=== PATIENT | female | born 1985 | race Caucasian/White ===

== ENCOUNTER 2023-04-14 19:59 | Outpatient (REF) | payer BC, SELFPAY ==
[2023-04-19 11:14] LABS: Age Gdln ACOG Testing Note (.); HPV Aptima Negative (Negative); IGP, Aptima HPV, rfx 16/18,45 Note (.)
== END 2023-04-14 20:00 | disposition home or self-care (01) ==
LOC: LAB 19:59
PROVIDERS: Visit Provider Obstetrics & Gynecology
DX: Z01.419 Encounter for gynecological examination (general) (routine) without abnormal findings (principal)
CPT/HCPCS: 87624; G0145

== ENCOUNTER 2024-05-01 09:35 | Outpatient (OUT) | payer BC, SELFPAY ==
--- NOTE | 2024-05-01 09:37 | US_ITS ---
The [address] [address] Patient Name: ANURAG OSORIO MRN: [id number] date: 1985 Sex: F Assigned Patient Location: Current Patient Location: Accession/Order Number: [id number] Exam Date: 05/01/2024 09:40 Report Date: 05/02/2024 07:15 At the request of: AKIL TYLER Procedure: US pelvis w/ transvaginal EXAMINATION: US pelvis w/ transvaginal HISTORY: Menorrhagia with regular cycle N92.0 COMPARISON: No relevant comparison available. FINDINGS: The uterus is normal in size, contour and echotexture measuring 8.4 x 4.8 x 3.9 cm. The uterus is anteverted. Endometrium measures 6.1 mm, normal. The right ovary is normal measuring 2.6 x 1.5 x 1.6 cm. Normal color and Doppler flow. Area of anechoic echogenicity measuring 1 cm, follicle versus cyst The left ovary is normal measuring 1.3 x 1.4 cm. Normal color and Doppler flow No free fluid US/US pelvis w/ transvaginal IMPRESSION: No acute abnormality Electronically authenticated by: TRINY COLLINS Date: 05/02/2024 07:15
--- OUTSIDE RECORDS SUMMARY | 2024-05-01 09:51 | XMS_ITS | CCD ---
Author Organization [facility] Care Team Providers Care Academic Affairs Coordinator Name Role Phone ROULA, DR TROY Sheets Attending Unavailable ROULA, DR TROY Sheets Admitting Unavailable TESMOND, AHMET Primary Care Unavailable LIANA, DR MARCUS Jones Consulting Unavailable GRILLIS, DR HARRIS Consulting Unavailable ROULA, DR TROY Sheets Consulting Unavailable AGUBOSIMNANCY Consulting Unavailable KONSTBETZAIDA GREENBERG Consulting Unavailable HartmannLuz Marina issa Consulting Unavailable Betzaida Zaldivar Attending Unavailable Tania De Anda Unavailable Unavailable Primary Care Provider KATELYN Coyne Attending Unavailable KATELYN TYLER Attending Unavailable KATELYN TYLER Attending Unavailable KATELYN TYLER Attending Unavailable KATELYN TYLER Attending Unavailable Allergies Allergy Classification Reported Allergen(s) Allergy Type Date of Onset Reaction(s) Facility (1 source) No Known Medication Allergies; Translations: [No Known Medication Allergies] Propensity to adverse reactions (disorder) [facility] Repository Medications Current Medications Medication Drug Class(es) Dates Sig (Normalized) Sig (Original) cephalexin 500 mg oral capsule (1 source) Cephalosporin Antibacterial Start: 02-25-2023 take 1 capsule by mouth every eight hours Cephalexin 500 MG 1 capsule Orally every 8 hrs for 7 Feb, Active phentermine hydrochloride 37.5 mg oral tablet (9 sources) Sympathomimetic Amine Anorectic Start: 02-14-2024 End: 04-19-2024 take 1 tablet by mouth before mealtime phentermine (Adipex-P) 37.5 MG tablet Indications: Encounter for weight management Take 1 tablet (37.5 mg) by mouth in the morning. Take before meals. 30 tablet 03/15/2024 04/19/2024 Discontinued Completed/Discontinued Medications Medication Drug Class(es) Dates Sig (Normalized) Sig (Original) methylPREDNISolone 4 mg oral tablet (1 source) Corticosteroid Start: 06-29-2022 Medrol 4 MG as directed Orally as directed for 6 days Jun, Not-Taking Problems Active Problems Problem Classification Problem Date Documented Date Episodic/Chronic Abdominal pain (3 sources) Right upper quadrant pain; Translations: [RIGHT UPPER QUADRANT PAIN] Onset: 10-12-2020 Episodic Administrative/social admission (3 sources) Patient encounter status; Translations: [Persons encountering health services in other specified circumstances] 03-15-2024 Episodic Biliary tract disease (1 source) Calculus of gallbladder with acute cholecystitis without obstruction; Translations: [CALCU GB W/AC CHOLECYST W/O OBST] Onset: 10-17-2020 Episodic Malaise and fatigue (5 sources) Fatigue; Translations: [Chronic fatigue, unspecified] Onset: 01-12-2023 01-12-2023 Chronic Skin and subcutaneous tissue infections (1 source) Cellulitis of left finger Episodic Unclassified (1 source) CONTACT W/AND (SUSP) EXPOS COVID-19; Translations: [CONTACT W/AND (SUSP) EXPOS COVID-19] Onset: 10-17-2020 Past or Other Problems Problem Classification Problem Date Documented Da te Episodic/Chronic Blindness and vision defects (5 sources) Bilateral myopia of eyes; Translations: [Myopia, bilateral] Onset: 01-12-2023 01-12-2023 Episodic Mycoses (5 sources) Mycosis; Translations: [Candidiasis, unspecified] Onset: 01-12-2023 01-12-2023 Episodic Other nutritional; endocrine; and metabolic disorders (5 sources) Abnormal weight gain; Translations: [Abnormal weight gain] Onset: 01-12-2023 01-12-2023 Episodic Results Test Name Value Interpretation Reference Range Facility Quantiferon-TB Plus (Client Incubated)on 04-25-2022 Gamma interferon background IA Qn (Bld) 0.01 International_Unit/mL Invalid Interpretation Code [facility] Comment on above: Performed By: #### 3 [id number] #### [facility] [address] [place] [address] M. tuberculosis stim IFN-g by CD4+ CD8+ T-cells corrected for background Qn (Bld) 0.01 International_Unit/mL Invalid Interpretation Code [facility] Comment on above: Performed By: #### 3 [id number] #### [facility] [address] [place] [address] M. tuberculosis stim IFN-g by CD4+ T-cells corrected for background Qn (Bld) 0.00 International_Unit/mL Invalid Interpretation Code [facility] Comment on above: Performed By: #### 3 [id number], [id number] #### [facility] [address] [place] [address] M. tuberculosis stim IFN-g Ql (Bld) [Interp] Negative Invalid Interpretation Code Negative [facility] Comment on above: Result Comment: No r esponse to M tuberculosis antigens detected. Infection with M tuberculosis is unlikely, but high risk individuals should be considered for additional testing (ATS/IDSA/CDC Clinical Practice Guidelines, 2017). The reference range is an Antigen minus Nil result of <0.35 IU/mL. The specimen received for QuantiFERON testing was incubated by the ordering institution. Specific procedures outlined in our Directory of Services and in the package insert for the QuantiFERON Gold (In Tube) test must be followed to enable for proper stimulation of cells for the production of interferon gamma. Chemiluminescence immunoassay methodology Performed at: [facility] [id number] PhD Sarika Olivia Performed By: #### 3 [id number] #### [facility] [address] [place] [address] Mitogen stimulated gamma interferon Qn (Bld) >10.00 Invalid Interpretation Code [facility] Comment on above: Performed By: #### 3 [id number], [id number], [id number] #### [facility] [address] [place] [address] Service comment (Unsp spec) [Interp] Comment Invalid Interpretation Code [facility] Comment on above: Result Comment: Jt tiFERON-TB Gold Plus is a qualitative indirect test for M tuberculosis infection (including disease) and is intended for use in conjunction with risk assessment, radiography, and other medical and diagnostic evaluations. The QuantiFERON-TB Gold Plus result is determined by subtracting the Nil value from either TB antigen (Ag) value. The Mitogen tube serves as a control for the test. Performed By: #### 3 [id number], [id number] #### [facility] [address] [place] [address] Hep Bs Abon 04-24-2022 HBV surface Ab Ql (S) Non-Reactive Invalid Interpretation Code [facility] Comment on above: Result Comment: Non Reactive: Inconsistent with immunity, less than 10 mIU/mL Reactive: Consistent with immunity, greater than 9.9 mIU/mL Performed at: [address] [id number] PhD Sarika Olivia Performed By: #### 3 [id number], [id number] #### [facility] [address] [place] [address] Measles/Mumps/Rubella Immuni tyon 04-24-2022 MeV IgG IA Qn (S) 283.0 A unit/mL Invalid Interpretation Code Immune >16.4 [facility] Comment on above: Result Comment: Nega tive <13.5 Equivocal 13.5 - 16.4 Positive >16.4 Presence of antibodies to Rubeola is presumptive evidence of immunity except when acute infection is suspected. Performed By: #### 3 [id number], [id number], [id number] #### [facility] [address] [place] [address] MuV IgG IA Qn (S) <9.0 Low Immune >10.9 [facility] Comment on above: Result Comment: Nega tive <9.0 Equivocal 9.0 - 10.9 Positive >10.9 A positive result generally indicates past exposure to Mumps virus or previous vaccination. Performed at: [address] [id number] PhD Sarika Olivia Performed By: #### 3 [id number], [id number], [id number], [id number] #### [facility] [address] [place] [address] Rubella virus IgG Qn (S) 2.03 [IU]/mL Invalid Interpretation Code Immune >0.99 [facility] Comment on above: Result Comment: Non- immune <0.90 Equivocal 0.90 - 0.99 Immune >0.99 Performed By: #### 3 [id number], [id number], [id number], [id number] #### [facility] [address] [place] [address] Varic IgGon 04-24-2022 VZV IgG IA Qn (S) 638 Invalid Interpretation Code Immune >165 [facility] Comment on above: Result Comment: Nega tive <135 Equivocal 135 - 165 Positive >165 A positive result generally indicates exposure to the pathogen or administration of specific immunoglobulins, but it is not indication of active infection or stage of disease. Performed at: [facility] [address] [id number] PhD Sarika Olivia Performed By: #### 3 [id number], [id number] #### [facility] [address] [place] [address] Physician Orderon 04-23-2022 Physician Order [id number] Normal [facility] CBC AUTO DIFFon 10-12-2020 BASO # 0.0 103/ul Normal 0.0-0.1 [facility] Comment on above: Performed By: #### C BC #### [facility] [address] [place] [address] Gris Ceja Basophils/100 WBC (Bld) 0.1 % Critically low 0.2-2.0 [facility] Comment on above: Performed By: #### C BC #### [facility] [address] [place], [place] [id number] Gris Brenna EO # 0.0 103/ul Normal 0.0-0.7 [facility] Comment on above: Performed By: #### C BC #### [facility] [address] [place] [address] Gris Brenna Eosinophils/100 WBC (Bld) 0.3 % Critically low 0.9-7.0 [facility] Comment on above: Performed By: #### C BC #### [facility] [address] [place] [address] Gris Brenna Erythrocyte distribution width (RBC) [Ratio] 12.3 % Normal 11.0-15.0 [facility] Comment on above: Performed By: #### C BC #### [facility] [address] [place] [address] Gris Brenna Hematocrit (Bld) [Volume fraction] 36.0 % Normal 36.0-48.0 [facility] Comment on above: Performed By: #### C BC #### [facility] [address] [place] [address] Gris Brenna Hemoglobin (Bld) [Mass/Vol] 12.0 g/dL Normal 12.0-16.0 [facility] Comment on above: Performed By: #### C BC #### [facility] [address] [place] [address] Gris Brenna IG # 0.02 10e3/ul Normal 0.00-0.03 [facility] Comment on above: Performed By: #### C BC #### [facility] [address] [place] [address] Gris Brenna IG % 0.2 % Normal 0.0-0.5 [facility] Comment on above: Performed By: #### C BC #### [facility] [address] [place], [place] [phone] Gris Brenna LYMPH # 1.5 103/ul Normal 1.2-3.8 [facility] Comment on above: Performed By: #### C BC #### [facility] [address] [place] [address] Gris Brenna Lymphocytes/100 WBC (Bld) 13.5 % Critically low 20.5-60.0 [facility] Comment on above: Performed By: #### C BC #### [facility] [address] [place], [place] [phone] Gris Brenna MANUAL DIFF REQ NO Normal [facility] Comment on above: Performed By: #### C BC #### [facility] [address] [id number] Gristej Ceja MCH (RBC) [Entitic mass] 29.3 pg Normal 26.7-34.0 [facility] Comment on above: Performed By: #### C BC #### [facility] [address] [place] [address] Gristej Ceja MCHC (RBC) [Mass/Vol] 33.3 g/dL Normal 29.9-35.2 [facility] Comment on above: Performed By: #### C BC #### [facility] [address] [place], [place] [address] Gristej Lauen MCV (RBC) [Entitic vol] 87.8 fL Normal 81.0-99.0 [facility] Comment on above: Performed By: #### C BC #### [facility] [address] [place], [place] [phone] Gris Brenna MONO # 0.6 103/ul Normal 0.3-0.8 [facility] Comment on above: Performed By: #### C BC #### [facility] [address] [place], [place] [phone] Gris Brenna Monocytes/100 WBC (Bld) 5.2 % Normal 1.7-12.0 [facility] Comment on above: Performed By: #### C BC #### [facility] [address] [place], [place] [address] Gris Brenna NEUT # 9.1 103/ul Critically high 1.4-6.5 [facility] Comment on above: Performed By: #### C BC #### [facility] [address] [place], [place] [phone] Gris Brenna Neutrophils/100 WBC (Bld) 80.7 % Critically high 43.0-75.0 [facility] Comment on above: Performed By: #### C BC #### [facility] [address] [place], [place] [address] Gris Ceja Platelet mean volume (Bld) [Entitic vol] 9.7 fL Normal 9.5-13.5 [facility] Comment on above: Performed By: #### C BC #### [facility] [address] [place], [place] [address] Gris Ceja PLT 228 103/ul Normal 150-450 [facility] Comment on above: Performed By: #### C BC #### [facility] [address] [place], [place] [address] Gris Ceja RBC 4.10 106/ul Critically low 4.20-5.40 [facility] Comment on above: Performed By: #### C BC #### [facility] [address] [place] [address] Gris Ceja WBC 11.2 103/ul Critically high 4.0-11.0 [facility] Comment on above: Performed By: #### C BC #### [facility] [address] [place] [address] ABD/PELVIS WO CONon 10-12 CT ABD/PELVIS WO CON EXAMINATION: CT ABD/PELVIS WO CON HISTORY: CALCULUS OF KIDNEY. Upper abdominal pain. COMPARISON: None. TECHNIQUE: Unenhanced helical imaging of the abdomen and pelvis is performed. Multiplanar reconstructions are submitted. Dose reduction techniques were achieved by using: automated exposure control and/or adjustment of mA and /or kV according to patient size and/or use of iterative reconstruction technique. FINDINGS: ABDOMEN: The imaged lung bases are clear. The liver, spleen, adrenals, kidneys, pancreas, and biliary ducts are normal. Multiple gallstones are present within the gallbladder. No findings of cholecystitis. No biliary duct dilatation or biliary stones. No renal or ureteric stones are present. There is no hydronephrosis. There is no free fluid, fluid collection, or adenopathy. The stomach, proximal small bowel, and imaged colon are normal in course and caliber. No bowel wall thickening is seen. The aorta and IVC are within normal limits. No acute osseous lesion is seen. PELVIS: The distal ureters, urinary bladder, rectosigmoid colon, distal small bowel loops, and appendix are normal. There is no pelvic free fluid, fluid collection, or adenopathy. The uterus and adnexa appear normal. There are no distal urinary tract calculi. No acute osseous abnormality is present. IMPRESSION: 1. No acute abdominal or pelvic inflammatory process. 2. No urinary tract calculi. 3. Normal appendix and no adenopathy. 4. Cholelithiasis. No findings of cholecystitis. No biliary duct dilatation or biliary stones. Electronically authenticated by: LUZ MARINA HARTMANN Date: 2020-10-11 23:05 Normal [facility] Covid-19 PCR (CVDTBH)on 09-15 SARS-CoV-2 (COVID-19) RNA JAREK+probe Ql (Unsp spec) Not detected Normal NOT DETECTED [facility] Comment on above: Result Comment: This test is not yet approved or cleared by the [place] FDA. When there are no FDA-approved or cleared tests available, and other criteria are met, FDA can make tests available under an emergency access mechanism called an Emergency Use Authorization (EUA). The EUA for this test is supported by the Supervisor Sample Preparation of Health and Human Service's (HHS's) declaration that circumstances exist to justify the emergency use of in vitro diagnostics for the detection and/or diagnosis of the virus that causes COVID-19. This EUA will remain in effect (meaning this test can be used) for the duration of the COVID-19 declaration justifying emergency of IVDs, unless it is terminated or revoked by FDA (after which the test may no longer be used). When diagnostic testing is negative, the possibility of a false negative should be considered in the context of a patient's recent exposures and the presence of clinical signs and symptoms consistent with SARS-CoV-2. Performed By: #### C VDTBH #### [facility] [address] [place], [place] [address] Gris Ceja PREG HCG QUALon 10-12-2020 , QUAL Negative Normal NEGATIVE [facility] Comment on above: Performed By: #### P REG ####[facility] [address] [place], [place] [address]DfakrlGris Ceja PROF 14(COMP METB)on 05-29-2 021 Albumin [Mass/Vol] 3.4 g/dL Critically low 3.5-5.0 Th [facility] Comment on above: Performed By: #### C MP #### [facility] [address] [place], [place] [phone] Gris Brenna Albumin/Globulin [Mass ratio] 1.0 {ratio} Normal [facility] Comment on above: Performed By: #### C MP #### [facility] [address] [place], [place] [address] Gris Brenna ALP [Catalytic activity/Vol] 69 U/L Normal 38-126 [facility] Comment on above: Performed By: #### C MP #### [facility] [address] [place], [place] [address] Gris Brenna ALT [Catalytic activity/Vol] 15 U/L Normal 9-52 [facility] Comment on above: Performed By: #### C MP #### [facility] [address] [place], [place] [address] Gris Brenna Anion gap [Moles/Vol] 11.2 mmol/L Normal [facility] Comment on above: Performed By: #### C MP #### [facility] [address] [place], [place] [address] Gris Brenna AST [Catalytic activity/Vol] 15 U/L Normal 14-36 [facility] Comment on above: Performed By: #### C MP #### [facility] [address] [place], [place] [address] Gris Brenna Bilirubin [Mass/Vol] 0.4 mg/dL Normal 0.2-1.3 [facility] Comment on above: Performed By: #### C MP #### [facility] [address] [place], [place] [address] Gris Brenna Calcium [Mass/Vol] 8.2 mg/dL Critically low 8.4-10.2 Th [facility] Comment on above: Performed By: #### C MP #### [facility] [address] [place], [place] [address] Gris Brenna Chloride [Moles/Vol] 108 mmol/L Critically high 98-107 [facility] Comment on above: Performed By: #### C MP #### [facility] [address] [address] Gris Brenna CO2 [Moles/Vol] 25.5 mmol/L Normal 22.0-30.[address] [facility] Comment on above: Performed By: #### C MP #### [facility] [address] [address] Gris Brenna Creatinine [Mass/Vol] 0.72 mg/dL Normal 0.52-1.04 [facility] Comment on above: Performed By: #### C MP #### [facility] [address] [id number] Gris Brenna EGFR-AF GUYANESE >60 Normal >=60 [facility] Comment on above: Performed By: #### C MP #### [facility] [address] [address] Gris Brenna EGFR-NON AF GUYANESE >60 Normal >=60 [facility] Comment on above: Performed By: #### C MP #### [facility] [address] [address] Gris Brenna Globulin (S) [Mass/Vol] 3.4 g/dL Normal [facility] Comment on above: Performed By: #### C MP #### [facility] [address] [place] [address] Gris Brenna Glucose [Mass/Vol] 123 mg/dL Critically high 74-106 T [facility] Comment on above: Performed By: #### C MP #### [facility] [address] [address] Gris Brenna Potassium [Moles/Vol] 4.7 mmol/L Normal 3.4-5.0 [facility] Comment on above: Performed By: #### C MP #### [facility] [address] [place] [address] Gris Brenna Protein [Mass/Vol] 6.8 g/dL Normal 6.1-8.2 [facility] Comment on above: Performed By: #### C MP #### [facility] [address] [place] [address] Gris Brenna Sodium [Moles/Vol] 140 mmol/L Normal 137-145 [facility] Comment on above: Performed By: #### C MP #### [facility] [address] [place] [address] Gris Ceja Urea nitrogen [Mass/Vol] 7.0 mg/dL Normal 7.0-17.0 [facility] Comment on above: Performed By: #### C MP #### [facility] [address] [place] [address] Gris Ceja Urea nitrogen/Creatinin e [Mass ratio] 9.7 mg/mg Normal [facility] Comment on above: Performed By: #### C MP #### [facility] [address] [place] [address] Gris Ceja RAPID COVID-19 ANTIGENon EUA Statement SEE BELOW Normal [facility] Comment on above: Result Comment: This test has not been FDA cleared or approved, but has been authorized by the FDA under an Emergency Use Authorization (EUA) for use by authorized laboratories certified under CLIA that meet the requirements to perform moderate or high complexity testing. This test has been authorized only for the detection of proteins from SARS-CoV-2, not for any other viruses or pathogens. The emergency use of this test is authorized for the duration of the declaration that circumstances exist justifying the authorization of emergency use of in vitro diagnostic tests for detection and/or diagnosis of Covid-19 under section 564(b)(1) of the Act, 21 U.S.C. 360bbb-3(b)(1), unless the declaration is terminated or authorization is revoked sooner. Performed By: #### C VDAG #### [facility] [address] [place] [address] Gris Ceja SARS-CoV-2 (COVID-19) RNA JAREK+probe Ql (Unsp spec) Negative Normal NEGATIVE [facility] Comment on above: Result Comment: Nega tive results are presumptive. They do not preclude infection and should not be used as the sole basis for treatment decisions. Additional confirmatory testing by a molecular method should be considered. Performed By: #### C VDAG #### [facility] [address] [place], [place] [address] Gris Brenna AMYLASEon 10-11-2020 Amylase [Catalytic activity/Vol] 41 U/L Normal 31-110 [facility] Comment on above: Performed By: #### C MP, RUTHY, KATELYN #### [facility] [address] [place], [place] [address] Gris Brenna CBC AUTO DIFFon 10-11-2020 BASO # 0.0 103/ul Normal 0.0-0.1 [facility] Comment on above: Performed By: #### C BC #### [facility] [address] [place], [place] [phone] Gris Brenna Basophils/100 WBC (Bld) 0.1 % Critically low 0.2-2.0 [facility] Comment on above: Performed By: #### C BC #### [facility] [address] [place] [address] Gris Brenna EO # 0.1 103/ul Normal 0.0-0.7 [facility] Comment on above: Performed By: #### C BC #### [facility] [facility] [address] [place], [place] [id number] Gris Brenna Eosinophils/100 WBC (Bld) 1.3 % Normal 0.9-7.0 [facility] Comment on above: Performed By: #### C BC #### [facility] [address] [place] [address] Gris Brenna Erythrocyte distribution width (RBC) [Ratio] 12.3 % Normal 11.0-15.0 [facility] Comment on above: Performed By: #### C BC #### [facility] [address] [place], [place] [phone] Gris Brenna Hematocrit (Bld) [Volume fraction] 36.9 % Normal 36.0-48.0 [facility] Comment on above: Performed By: #### C BC #### [facility] [address] [place], [place] [phone] Gris Brenna Hemoglobin (Bld) [Mass/Vol] 12.6 g/dL Normal 12.0-16.0 [facility] Comment on above: Performed By: #### C BC #### [facility] [address] [place] [address] Gris Brenna IG # 0.01 10e3/ul Normal 0.00-0.03 [facility] Comment on above: Performed By: #### C BC #### [facility] [address] [place] [address] Gris Brenna IG % 0.1 % Normal 0.0-0.5 [facility] Comment on above: Performed By: #### C BC #### [facility] [address] [place] [address] Gris Brenna LYMPH # 2.4 103/ul Normal 1.2-3.8 [facility] Comment on above: Performed By: #### C BC #### [facility] [address] [place] [address] Gris Brenna Lymphocytes/100 WBC (Bld) 34.9 % Normal 20.5-60.0 [facility] Comment on above: Performed By: #### C BC #### [facility] [address] [place] [address] Gris Brnena MANUAL DIFF REQ NO Normal [facility] Comment on above: Performed By: #### C BC #### [facility] [address] [place] [address] Gris Brenna MCH (RBC) [Entitic mass] 29.3 pg Normal 26.7-34.0 [facility] Comment on above: Performed By: #### C BC #### [facility] [address] [place] [address] Gris Brenna MCHC (RBC) [Mass/Vol] 34.1 g/dL Normal 29.9-35.2 [facility] Comment on above: Performed By: #### C BC #### [facility] [address] [place] [address] Gris Brenna MCV (RBC) [Entitic vol] 85.8 fL Normal 81.0-99.0 [facility] Comment on above: Performed By: #### C BC #### [facility] [address] [place] [address] Gris Ceja MONO # 0.4 103/ul Normal 0.3-0.8 [facility] Comment on above: Performed By: #### C BC #### [facility] [address] [place], [place] [id number] Gris Ceja Monocytes/100 WBC (Bld) 6.4 % Normal 1.7-12.0 [facility] Comment on above: Performed By: #### C BC #### [facility] [address] [place] [address] Gris Lauen NEUT # 3.9 103/ul Normal 1.4-6.5 [facility] Comment on above: Performed By: #### C BC #### [facility] [address] [place] [address] Gris Ceja Neutrophils/100 WBC (Bld) 57.2 % Normal 43.0-75.0 [facility] Comment on above: Performed By: #### C BC #### [facility] [address] [place] [address] Gris Ceja Platelet mean volume (Bld) [Entitic vol] 9.3 fL Critically low 9.5-13.5 [facility] Comment on above: Performed By: #### C BC #### [facility] [address] [place] [address] Gris Ceja PLT 227 103/ul Normal 150-450 [facility] Comment on above: Performed By: #### C BC #### [facility] [address] [place] [address] Gristej Lauen RBC 4.30 106/ul Normal 4.20-5.40 [facility] Comment on above: Performed By: #### C BC #### [facility] [address] [place], [place] [phone] Gristej Lauen WBC 6.9 103/ul Normal 4.0-11.0 [facility] Comment on above: Performed By: #### C BC #### [facility] [address] [place] [address] Gris Ceaj LIPASEon 10-11-2020 Lipase [Catalytic activity/Vol] 193.0 U/L Normal 23.0-300.0 [facility] Comment on above: Performed By: #### C RUTHY VENTURA AMY #### [facility] [address] [place] [address] Gris Brenna PROF 14(COMP METB)on 021 Albumin [Mass/Vol] 4.0 g/dL Normal 3.5-5.0 [facility] Comment on above: Performed By: #### C RUTHY VENTURA AMY #### [facility] [address] [place] [address] Gris Brenna Albumin/Globulin [Mass ratio] 1.1 {ratio} Normal [facility] Comment on above: Performed By: #### C RUTHY VENTURA AMY #### [facility] [address] [place] [address] Gris Brenna ALP [Catalytic activity/Vol] 78 U/L Normal 38-126 [facility] Comment on above: Performed By: #### C RUTHY VENTURA AMY #### [facility] [address] [place] [address] Gris Brenna ALT [Catalytic activity/Vol] 10 U/L Normal 9-52 [facility] Comment on above: Performed By: #### C RUTHY VENTURA AMY #### [facility] [address] [place] [address] Gris Brenna Anion gap [Moles/Vol] 15.4 mmol/L Normal [facility] Comment on above: Performed By: #### C RUTHY VENTURA AMY #### [facility] [address] [place] [address] Gris Brenna AST [Catalytic activity/Vol] 10 U/L Critically low 14-36 [facility] Comment on above: Performed By: #### C RUTHY VENTURA AMY #### [facility] [address] [place] [address] Gris Brenna Bilirubin [Mass/Vol] 0.3 mg/dL Normal 0.2-1.3 [facility] Comment on above: Performed By: #### C RUTHY VENTURA AMY #### [facility] [address] [address] Gris Brenna Calcium [Mass/Vol] 8.8 mg/dL Normal 8.4-10.2 [facility] Comment on above: Performed By: #### C RUTHY VENTURA AMY #### [facility] [address] [address] Gris Brenna Chloride [Moles/Vol] 106 mmol/L Normal 98-107 [facility] Comment on above: Performed By: #### C RUTHY VENTURA, KATELYN #### [facility] [address] [address] Gris Brenna CO2 [Moles/Vol] 22.2 mmol/L Normal 22.0-30.0 [facility] Comment on above: Performed By: #### C RUTHY VENTURA KATELYN #### [facility] [address] [place] [address] Gris Brenna Creatinine [Mass/Vol] 0.70 mg/dL Normal 0.52-1.04 [facility] Comment on above: Performed By: #### C RUTHY VENTURA, KATELYN #### [facility] [address] [place] [address] Gris Brenna EGFR-AF GUYANESE >60 Normal >=[address] [facility] Comment on above: Performed By: #### C RUTHY VENTURA, KATELYN #### [facility] [address] [place] [address] Gris Brenna EGFR-NON AF GUYANESE >60 Normal >=60 [facility] Comment on above: Performed By: #### C RUTHY VENTURA, KATELYN #### [facility] [address] [place] [address] Gris Brenna Globulin (S) [Mass/Vol] 3.7 g/dL Normal [facility] Comment on above: Performed By: #### C RUTHY VENTURA, KATELYN #### [facility] [address] [place] [address] Gris Brenna Glucose [Mass/Vol] 139 mg/dL Critically high 74-106 [facility] Comment on above: Performed By: #### C RUTHY VENTURA, KATELYN #### [facility] [address] [id number] Gris Brenna Potassium [Moles/Vol] 3.6 mmol/L Normal 3.4-5.0 [facility] Comment on above: Performed By: #### C RUTHY VENTURA, KATELYN #### [facility] [address] [place], [place] [address] Gris Brenna Protein [Mass/Vol] 7.7 g/dL Normal 6.1-8.2 [facility] Comment on above: Performed By: #### C RUTHY VENTURA, KATELYN #### [facility] [address] [id number] Gris Brenna Sodium [Moles/Vol] 140 mmol/L Normal 137-145 [facility] Comment on above: Performed By: #### C RUTHY VENTURA, KATELYN #### [facility] [address] [place] [address] Gris Brenna Urea nitrogen [Mass/Vol] 10.0 mg/dL Normal 7.0-17.0 [facility] Comment on above: Performed By: #### C RUTHY VENTURA, KATELYN #### [facility] [address] [place], [place] [address] Gris Brenna Urea nitrogen/Creatinin e [Mass ratio] 14.3 mg/mg Normal [facility] Comment on above: Performed By: #### C RUTHY VENTURA, KATELYN #### [facility] [address] [place] [id number] Gris Brenna Vital Signs Date Time Vital Sign Value Performing Clinician Facility 04-19-2024 09:05-0500 Body mass index (BMI) [Ratio] 29.23 kg/m2 Katelyn HOLLIS Work Phone: [facility] 04-19-2024 09:05-0500 Body weight 72.48 kg Katelyn HOLLIS Work Phone: [facility] 04-19-2024 09:05-0500 Diastolic blood pressure 70 mm[Hg] Katelyn HOLLIS Work Phone: [facility] 04-19-2024 09:05-0500 Systolic blood pressure 110 mm[Hg] Katelyn Jayson PA Work Phone: [facility] [employer] 03-15-2024 09:15-0400 Body mass index (BMI) [Ratio] 29.56 kg/m2 Katelyn Tyler PA Work Phone: [facility] 03-15-2024 09:15-0400 Body weight 73.3 kg Katelyn Arlington PA Work Phone: [facility] 03-15-2024 09:15-0400 Diastolic blood pressure 74 mm[Hg] Katelyn Guptaey PA Work Phone: [facility] 03-15-2024 09:15-0400 Systolic blood pressure 116 mm[Hg] Katelyn Tyler PA Work Phone: [facility] 02-25-2023 09:20-0400 Body height 157.48 cm Tania De Anda Other [facility] Other 02-25-2023 09:20-0400 Body mass index (BMI) [Ratio] 27.98 kg/m2 Tania De Anda Other [facility] Other 02-25-2023 09:20-0400 Body temperature 98.1 [degF] Tania De Anda Other [facility] Other 02-25-2023 09:20-0400 Body weight 69.4 kg Tania De Anda Other [facility] Other 02-25-2023 09:20-0400 Diastolic blood pressure 58 mm[Hg] Tania De Anda Other [facility] Other 02-25-2023 09:20-0400 Respiratory rate 18 /min Tania De Anda Other [facility] Other 02-25-2023 09:20-0400 SaO2% (BldA) [Mass fraction] 99 % Tania De Anda Other [facility] Other 02-25-2023 09:20-0400 Systolic blood pressure 104 mm[Hg] Tania Ferreiraler Other [facility] Other Encounters Encounter Date Encounter Type Care Provider Facility Start: 04-19-2024 End: 04-19-2024 Bamboo flowsheet Katelyn Arlington PA Work Phone: [facility] Start: 04-19-2024 End: 04-19-2024 Bamboo flowsheet Katelyn Jayson PA Work Phone: [facility] Start: 04-19-2024 End: 04-19-2024 ambulatory KATELYN JAYSON Not Available Start: 04-19-2024 End: 04-19-2024 Office outpatient visit 10 minutes Katelyn Arlington PA Work Phone: [facility] Comment on above: Encounter for weight management Start: 03-15-2024 End: 03-15-2024 Bamboo flowsheet Katelyn Arlington PA Work Phone: [facility] Start: 03-15-2024 End: 03-15-2024 Bamboo flowsheet Katelyn Arlington PA Work Phone: [facility] Start: 03-15-2024 End: 03-15-2024 ambulatory KATELYN JAYSON Not Available Start: 03-15-2024 End: 03-15-2024 Office outpatient visit 5 minutes Katelyn Arlington PA Work Phone: [facility] Comment on above: Encounter for weight management Start: 02-14-2024 End: 02-14-2024 ambulatory KATELYN JAYSON Not Available Start: 06-22-2023 End: 06-22-2023 ambulatory KATELYN JAYSON Not Available Start: 05-20-2023 End: 05-20-2023 ambulatory KATELYN JAYSON Not Available Start: 02-25-2023 End: 02-25-2023 ambulatory Tania De Anda Other [facility] Other Start: 02-25-2023 Office outpatient vi sit 15 minutes Tania De Anda [facility] Start: 04-23-2022 End: 04-24-2022 ambulatory Betzaida Zaldivar Facility:[facility] Start: 10-12-2020 End: 10-12-[address] TROY CELESTE Facility: Plan of Treatment Date Care Activity Detail Author Start: 05-01-2024 End: 05-01-2024 Professional / ancillary services management 05/01/2024 9:30 AM EST Ancillary Procedure [facility] [address] [place] [id number] [facility] Start: 04-27-2024 End: 04-27-2024 Patient encounter procedure 04/27/2024 9:30 AM EST Procedure Visit [facility] [address] [place] [id number] Shravan Garcia, [address] [place] [address] [facility] Start: 03-20-2024 End: 03-20-2024 Professional / ancillary services management 03/20/2024 9:00 AM EST Ancillary Procedure [facility] [address] [place] [id number] [facility] Payers Date Payer Category Payer Unknown [id number] 2021 [facility] BC[employer] [id number] 2021 [facility] [id number] 1986 Unknown [id number] 1986 Unknown [id number] 1986 Unknown [id number] [id number] 1986 Unknown [id number] 1259 1986 Unknown [id number] 1259 1986 Unknown [id number] 1259 1986 Unknown [id number] [id number] 1959 Unknown [id number] Social History Date Type Detail Facility Start: 03-13-2023 End: 05-20-2023 Sex Assigned At [facility] Start: 10-21-2022 Tobacco smoking stat [facility] Never smoked tobacco [facility] Start: 10-21-2022 Tobacco use and exposure Smoke less tobacco non-user [facility] Start: 02-14-2024 End: 04-19-2024 Alcoholic beverage intake Current drinker of alcohol (finding) [facility] Start: 05-20-2023 End: 02-14-2024 [facility]coholic beverage [facility] How often to you hav e a drink containing alcohol? Monthly or less [facility] How many standard dr inks containing alcohol do you have on a typical day? 1 or 2 [facility] How often do you hav e 6 or more drinks on 1 occasion? Never [facility] Start: 10-21-2022 Alcohol Comment caffeine intak e: occasional coke zero [facility] Start: 1985 Sex assigned at Not on file [facility] History of Present illness Narrative 04-19-2024 TELMA Lopez - 04/19/2024 8:40 AM EST Note Date & Type Note Facility 04-19-2024 History of Presen t illness Narrative Reason for Appointment: Patient ID: Leslye Patino is a 39 y.o. female who presents for encounter for weight loss Patient presents today for Weight Management Consult. MEDICATIONS No current outpatient medications ALLERGIES No Known Allergies PROBLEMS Active Ambulatory Problems Diagnosis Date Noted Abnormal weight gain 01/12/2023 Chronic fatigue 01/12/2023 Myopia of both eyes 01/12/2023 Yeast infection 01/12/2023 Resolved Ambulatory Problems Diagnosis Date Noted No Resolved Ambulatory Problems Past Medical History: Diagnosis Date Anxiety HISTORY PAST MEDICAL HISTORY SOCIAL HISTORY Past Medical History: Diagnosis Date Anxiety Chronic fatigue Myopia of both eyes 2008, 2010, 2016 Social History Tobacco Use Smoking status: Never Smokeless tobacco: Never Substance Use Topics Alcohol use: Yes Alcohol/week: 2.0 standard drinks of alcohol Types: 2 Standard drinks or equivalent per week Comment: caffeine intake: occasional coke zero Drug use: Not on file FAMILY HISTORY Family History Problem Relation Name Age of Onset Depression Mother MARS disease Mother Hyperlipidemia Father SURGICAL HISTORY Past Surgical History: Procedure Laterality Date ADENOIDECTOMY CHOLECYSTECTOMY 09/2020 PAP SMEAR 06/03/2021 NILM TONSILLECTOMY VAGINAL DELIVERY x3 WISDOM TOOTH EXTRACTION REVIEW OF SYSTEMS Review of Systems: Review of Systems All other systems reviewed and are negative. OBJECTIVE Objective: Physical Exam Constitutional: Appearance: Normal appearance. She is normal weight. HENT: Head: Normocephalic. Cardiovascular: Rate and Rhythm: Normal rate. Pulses: Normal pulses. Pulmonary: Effort: Pulmonary effort is normal. Breath sounds: Normal breath sounds. Abdominal: Palpations: Abdomen is soft. Musculoskeletal: General: Normal range of motion. Neurological: General: No focal deficit present. Mental Status: She is alert and oriented to person, place, and time. Psychiatric: Mood and Affect: Mood normal. Behavior: Behavior normal. Thought Content: Thought content normal. Judgment: Judgment normal. Vitals and nursing note reviewed. Vitals: Estimated body mass index is 29.23 kg/m as calculated from the following: Height as of 23: 5' 2 . Weight as of this encounter: 159 lb 12.8 oz. BP: 110/70 Patient's last menstrual period was 03/28/2024. ASSESSMENT & PLAN ICD-10-CM 1. Encounter for weight management Z76.89 Patient presents today for 2nd Adipex prescription. Patient desires additional weigh loss and she currently working out and is now at her BMI of 29. Patient verbalized understanding. Patient has lost more than 5% of her initial body weight Patient will return for preop appointment for ablation and salpingectomy Follow Up: Patient is to return to office for annual well women exam unless needed otherwise. Documented by TELMA Lopez on behalf of: TELMA Lopez documented in this encounter [facility] History of Present illness Narrative 03-15-2024 Shital Deshpande LPN - 03/15/2024 8:50 AM EDT Note Date & Type Note Facility 03-15-2024 History of Presen t illness Narrative Reason for Appointment: Patient ID: Leslye Patino is a 38 y.o. female who presents for Weight Management Patient presents today for a weight management consultation. Patient has been prescribed Adipex and she is here for her 2nd prescription. Today's Vitals: Estimated body mass index is 29.56 kg/m as calculated from the following: Height as of 04/14/23: 5' 2 . Weight as of this encounter: 161 lb 9.6 oz. Previous Weight/BMI: Wt Readings from Last 2 Encounters: 03/15/24 161 lb 9.6 oz 02/14/24 167 lb 1.9 oz BMI Readings from Last 2 Encounters: 03/15/24 29.56 kg/m 02/14/24 30.57 kg/m Allergies as of 03/15/2024 (No Known Allergies) Past Medical History: Diagnosis Date Anxiety Chronic fatigue Myopia of both eyes 2008, 2010, 2016 Past Surgical History: Procedure Laterality Date ADENOIDECTOMY CHOLECYSTECTOMY 09/2020 PAP SMEAR 06/03/2021 NILM TONSILLECTOMY VAGINAL DELIVERY x3 WISDOM TOOTH EXTRACTION Assessment/Plan Encounter Diagnosis Name Primary? Encounter for weight management Adipex: Patient presents today for 2nd Adipex prescription. Patients weight and blood pressure has been captured and discussed with the patient. I have discussed/reiterated the importance of keeping a food journal, proper nutrition/diet, and exercise regimen while taking Adipex. Patient verbalized understanding and was given a printed prescription signed by provider to take to their local pharmacy. Follow Up: Patient is to return to the office in 1 month for further evaluation to assess patient progress. Weight and blood pressure will need to be obtained in order for patient to receive 3rd prescription. Documented by: Shital Deshpande LPN on behalf of TELMA Lopez documented in this encounter [facility] Evaluation note 02-25-2023 Note Date & Type Note Facility 02-25-2023 Evaluation note Encounter Date Diagnosis Assessment Notes Feb, Paronychia of left middle finger (ICD-10 - L03.012) Discussed diagnosis with patient. Decision was made not to I&D today, area of swelling was not fluctuant, did not appear to have pus or drainage. Instructed patient to take medications as prescribed, take with food and full glass of water, complete entire course even if feeling better. Keep area clean and dry. Encouraged warm Epsom salt soaks of finger and warm compress. Keep skin and nail moisturized, good to use Vaseline or triple antibiotic ointment. May use Tylenol or Motrin as needed for discomfort. Follow up with PCP in 3-4 days if symptoms do not improve. Immediate eval if area increases in swelling, redness, warmth, red streaking, purulent drainage, or any other new or concerning symptoms. Patient verbalizes understanding and is agreeable at this time. [facility] Other Clinical Note 10-12-2020 Note Date & Type Note Facility 10-12-2020 Note PROCEDURE: US SINGLE QUAD RT UPPER, 10/11/2020 11:48 PM EDT CLINICAL INDICATIONS: Right upper quadrant abdominal pain, symptoms for one day COMPARISON: CT abdomen and pelvis 10/11/2020 TECHNIQUE: Right upper quadrant abdominal sonogram FINDINGS: Visualized pancreas is unremarkable. No ductal dilatation is seen. Liver is upper normal in size. Visualized portal vein is patent with antegrade phasic flow, normal velocity Hepatic parenchyma is normal in morphology and echogenicity. Hepatic contour is smooth. Focal hepatic abnormality is not seen. Common bile duct 0.2 cm. Numerous dependent gallbladder calculi are seen. There is wall thickening 0.4 cm. Echogenic region ventral wall of the gallbladder with reverberation artifact is noted. Adenomyomatosis is favored. Localized pain is not evident. Right kidney is normal in morphology. It measures 10.6 x 4.7 x 4.9 cm. No hydronephrosis or shadowing calculus is identified. Focal renal abnormality is not demonstrated. Free fluid is not evident. IMPRESSION: 1. Cholelithiasis, gallbladder wall thickening, adenomyomatosis without localized pain or bile duct dilatation. Chronic cholecystitis favored. 2. No additional right upper quadrant abdominal pathology Electronically authenticated by: BETZAIDA RIVERA Date: 2020-10-12 07:50 [facility] Evaluation note Note Date & Type Note Facility Evaluation note Diagnosis Encounter for weight management documented in this encounter [facility] History general Narrative - Reported Note Date & Type Note Facility History general Narrative - Reported Type Medical History depression Surgical History tonsillectomy Surgical History pet placement Surgical History wisdom teeth Surgical History cholecystectomy Hospitalization History see above [facility] Other Summary Purpose Family History No Family History Records FoundNo Family History Records FoundNo Family History Records Found Advance Directives No Advanced Directives Records FoundNo Advanced Directives Records FoundNo Advanced Directives Records Found Additional Source Comments INFORMATION SOURCE (unrecogn ized section and content) DATE CREATED AUTHOR 10/18/2020 [facility] DATE CREATED AUTHOR AUTHOR'S ORGANIZ ATION 04/25/2022 [facility] DATE CREATED AUTHOR AUTHOR'S ORGANIZ ATION 04/21/2024 [facility] EPIC REASON FOR VISIT (unrecogniz ed section and content) Reason Comments Weight Management Reason Comments encounter for weight loss FOR RECORDS PERTAINING TO PATIENTS WHO ARE OR HAVE BEEN ENROLLED IN A CHEMICAL DEPENDENCY/SUBSTANCEABUSE PROGRAM, SOME INFORMATION MAY BE OMITTED. This clinical summary was aggregated from multiple sources. Caution should be exercised in using it in the provision of clinical care. This summary normalizes information from multiple sources, and as a consequence, information in this document may materially change the coding, format and clinical context of patient data. In addition, data may be omitted in some cases. CLINICAL DECISIONS SHOULD BE BASED ON THE PRIMARY CLINICAL RECORDS. [employer] [facility]. provides no warranty or guarantee of the accuracy [phone] in [id number] [id number]
== END 2024-05-01 09:36 | disposition home or self-care (01) ==
LOC: US 09:35
PROVIDERS: Visit Provider Physician Assistant
DX: N92.0 Excessive and frequent menstruation with regular cycle (principal)
CPT/HCPCS: 76830; 76856

== ENCOUNTER 2024-05-02 10:39 | Outpatient (OUT) | payer BC, SELFPAY ==
--- OUTSIDE RECORDS SUMMARY | 2024-05-05 10:48 | XMS_ITS | CCD ---
Author Organization [facility] Care Team Providers Care Dollyman Name Role Phone ROULA, DR TROY Sheets Attending Unavailable ROULA, DR TROY Sheets Admitting Unavailable TESMOND, AHMET Primary Care Unavailable LIANA, DR MARCUS Jones Consulting Unavailable GRILLIS, DR HARRIS Consulting Unavailable ROULA, DR TROY Sheets Consulting Unavailable AGUBOSIMNANCY Consulting Unavailable KONSTBETZAIDA GREENBERG Consulting Unavailable HartmannLuz Marina issa Consulting Unavailable Betzaida Zaldivar Attending Unavailable Tania De Anda Unavailable Unavailable Primary Care Provider UnavailKATELYN Russell Attending Unavailable KATELYN TYLER Attending Unavailable KATELYN TYLER Attending Unavailable KATELYN TYLER Attending Unavailable KATELYN TYLER Attending Unavailable Allergies Allergy Classification Reported Allergen(s) Allergy Type Date of Onset Reaction(s) Facility (1 source) No Known Medication Allergies; Translations: [No Known Medication Allergies] Propensity to adverse reactions (disorder) [facility] Repository Medications Current Medications Medication Drug Class(es) Dates Sig (Normalized) Sig (Original) cephalexin 500 mg oral capsule (1 source) Cephalosporin Antibacterial Start: 02-25-2023 take 1 capsule by mouth every eight hours Cephalexin 500 MG 1 capsule Orally every 8 hrs for 7 12 Feb, 2023 Active phentermine hydrochloride 37.5 mg oral tablet (17 sources) Sympathomimetic Amine Anorectic Start: 05-20-2023 End: 04-19-2024 take 1 tablet by mouth before mealtime phentermine (Adipex-P) 37.5 MG tablet Indications: Encounter for weight management Take 1 tablet (37.5 mg) by mouth in the morning. Take before meals. 30 tablet 02/14/2024 03/15/2024 Active Completed/Discontinued Medications Medication Drug Class(es) Dates Sig (Normalized) Sig (Original) methylPREDNISolone 4 mg oral tablet (1 source) Corticosteroid Start: 06-29-2022 Medrol 4 MG as directed Orally as directed for 6 days Jun, Not-Taking Problems Active Problems Problem Classification Problem Date Documented Date Episodic/Chronic Abdominal pain (4 sources) Right upper quadrant pain; Translations: [Pain in female pelvis] Onset: 10-12-2020 Episodic Administrative/social admission (5 sources) Patient encounter status; Translations: [Persons encountering health services in other specified circumstances] 03-15-2024 Episodic Biliary tract disease (1 source) Calculus of gallbladder with acute cholecystitis without obstruction; Translations: [CALCU GB W/AC CHOLECYST W/O OBST] Onset: 10-17-2020 Episodic Contraceptive and procreative management (1 source) Sterilization requested; Translations: [Encounter for sterilization] 05-02-2024 Episodic Malaise and fatigue (9 sources) Fatigue; Translations: [Chronic fatigue, unspecified] Onset: 01-12-2023 01-12-2023 Chronic Menstrual disorders (3 sources) Menorrhagia; Translations: [Excessive and frequent menstruation with regular cycle] 05-02-2024 Chronic Other female genital disorders (1 source) Abnormal uterine bleeding; Translations: [Abnormal uterine and vaginal bleeding, unspecified] 05-02-2024 Chronic Skin and subcutaneous tissue infections (1 source) Cellulitis of left finger Episodic Unclassified (1 source) CONTACT W/AND (SUSP) EXPOS COVID-19; Translations: [CONTACT W/AND (SUSP) EXPOS COVID-19] Onset: 10-17-2020 Past or Other Problems Problem Classification Problem Date Documented Da te Episodic/Chronic Blindness and vision defects (9 sources) Bilateral myopia of eyes; Translations: [Myopia, bilateral] Onset: 01-12-2023 01-12-2023 Episodic Mycoses (9 sources) Mycosis; Translations: [Candidiasis, unspecified] Onset: 01-12-2023 01-12-2023 Episodic Other nutritional; endocrine; and metabolic disorders (9 sources) Abnormal weight gain; Translations: [Abnormal weight gain] Onset: 01-12-2023 01-12-2023 Episodic Results Test Name Value Interpretation Reference Range Facility HCG ( test) Ql (U)o n 05-02-2024 Interpretation and review of laboratory results Normal [facility] Preg Test, Ur Negative Negative [facility] Quantiferon-TB Plus (Client Incubated)on 04-25-2022 Gamma interferon background IA Qn (Bld) 0.01 International_Unit/m L Invalid Interpretation Code [facility] Comment on above: Performed By: #### 3 [id number], [id number] #### [facility] [address] [place] [address]805 M. tuberculosis stim IFN-g by CD4+ CD8+ T-cells corrected for background Qn (Bld) 0.01 International_Unit/m L Invalid Interpretation Code [facility] Comment on above: Performed By: #### 3 [id number] #### [facility] [address] [place] [address] 43756 M. tuberculosis stim IFN-g by CD4+ T-cells corrected for background Qn (Bld) 0.00 International_Unit/m L Invalid Interpretation Code [facility] Comment on above: Performed By: #### 3 [id number], [id number] #### [facility] [address] [place] [address] 85023 M. tuberculosis stim IFN-g Ql (Bld) [Interp] Negative Invalid Interpretation Code Negative [facility] Comment on above: Result Comment: No [...] interferon gamma. Chemiluminescence immunoassay methodology Performed at: [facility] [employer] [facility] [employer] [id number] PhD Sarika Olivia Performed By: #### 3 [id number] #### [facility] [address] [place] [address] Mitogen stimulated gamma interferon Qn (Bld) >10.00 Invalid Interpretation Code [facility] Comment on above: Performed By: #### 3 [id number], [id number] #### [facility] [address] [place] [address] Service comment (Unsp spec) [Interp] Comment Invalid Interpretation Code [facility] Comment on above: Result Comment: Jt [...] for the test. Performed By: #### 3 [id number], [id number], [id number] #### [facility] [address] [place] [address] Hep Bs Abon 04-24-2022 HBV surface Ab Ql (S) Non-Reactive Invalid Interpretation Code [facility] Comment on above: Result Comment: Non Reactive: Inconsistent with immunity, less than 10 mIU/mL Reactive: Consistent with immunity, greater than 9.9 mIU/mL Performed at: [facility] [id number] PhD Sarika Olivia Performed By: #### 3 [id number], [id number], [id number] #### [facility] [address] [place] [address] Measles/Mumps/Rubella Immuni tyon 04-24-2022 MeV IgG IA Qn (S) 283.0 A unit/mL Invalid Interpretation Code Immune >16.4 [facility] Comment on above: Result Comment: Nega tive <13.5 Equivocal 13.5 - 16.4 Positive >16.4 Presence of antibodies to Rubeola is presumptive evidence of immunity except when acute infection is suspected. Performed By: #### 3 [id number], [id number] #### [facility] [address] [place] [address] MuV IgG IA Qn (S) <9.0 Low Immune >10.9 [facility] Comment on above: Result Comment: Nega tive <9.0 Equivocal 9.0 - 10.9 Positive >10.9 A positive result generally indicates past exposure to Mumps virus or previous vaccination. Performed at: [facility] [address], [place] [id number] PhD Sarika Olivia Performed By: #### 3 [id number], [id number], [id number] #### [facility] [address] [place] [address] Rubella virus IgG Qn (S) 2.03 [IU]/mL Invalid Interpretation Code Immune >0.99 [facility] Comment on above: Result Comment: Non- immune <0.90 Equivocal 0.90 - 0.99 Immune >0.99 Performed By: #### 3 [id number], [id number], [id number], [id number] #### [facility] [address] [place] [address] Varic IgGon 04-24-2022 VZV IgG IA Qn (S) 638 Invalid Interpretation Code Immune >165 [facility] Comment on above: Result Comment: Nega tive <135 Equivocal 135 - 165 Positive >165 A positive result generally indicates exposure to the pathogen or administration of specific immunoglobulins, but it is not indication of active infection or stage of disease. Performed at: [facility] [address] [place] [id number] PhD Sarika Olivia Performed By: #### 3 [id number], [id number] #### [facility] [address] [place] [address] Physician Orderon 04-23-2022 Physician Order [id number] Normal [facility] CBC AUTO DIFFon 10-12-2020 BASO # 0.0 103/ul Normal 0.0-0.1 [facility] Comment on above: Performed By: #### C BC #### [facility] [address] [place], [place] [address] Gris Brenna Basophils/100 WBC (Bld) 0.1 % Critically low 0.2-2.0 [facility] Comment on above: Performed By: #### C BC #### [facility] [address] [place] [address] Gris Brenna EO # 0.0 103/ul Normal 0.0-0.7 [facility] Comment on above: Performed By: #### C BC #### [facility] [address] [place] [address] Gris Brenna Eosinophils/100 WBC (Bld) 0.3 % Critically low 0.9-7.0 [facility] Comment on above: Performed By: #### C BC #### [facility] [address] [place] [address] Gris Brenna Erythrocyte distribution width (RBC) [Ratio] 12.3 % Normal 11.0-15.0 [facility] Comment on above: Performed By: #### C BC #### [facility] [address] [place] [address] Gris Brenna Hematocrit (Bld) [Volume fraction] 36.0 % Normal 36.0-48.0 [facility] Comment on above: Performed By: #### C BC #### [facility] [address] [place] [address] Gris Brenna Hemoglobin (Bld) [Mass/Vol] 12.0 g/dL Normal 12.0-16.0 [facility] Comment on above: Performed By: #### C BC #### [facility] [address] [place] [address] Gris Brenna IG # 0.02 10e3/ul Normal 0.00-0.03 [facility] Comment on above: Performed By: #### C BC #### [facility] [address] [place] [address] Gris Brenna IG % 0.2 % Normal 0.0-0.5 [facility] Comment on above: Performed By: #### C BC #### [facility] [address] [place], [place] [address] Gris Brenna LYMPH # 1.5 103/ul Normal 1.2-3.8 [facility] Comment on above: Performed By: #### C BC #### [facility] [address] [place], [place] [address] Gris Brenna Lymphocytes/100 WBC (Bld) 13.5 % Critically low 20.5-60.0 [facility] Comment on above: Performed By: #### C BC #### [facility] [address] [place], [place] [address] Gris Ceja MANUAL DIFF REQ NO Normal [facility] Comment on above: Performed By: #### C BC #### [facility] [address] [place], [place] [address] Gristej Lauen MCH (RBC) [Entitic mass] 29.3 pg Normal 26.7-34.0 [facility] Comment on above: Performed By: #### C BC #### [facility] [address] [place], [place] [address] Gristej Ceja MCHC (RBC) [Mass/Vol] 33.3 g/dL Normal 29.9-35.2 [facility] Comment on above: Performed By: #### C BC #### [facility] [address] [place], [place] [address] Gristej Ceja MCV (RBC) [Entitic vol] 87.8 fL Normal 81.0-99.0 [facility] Comment on above: Performed By: #### C BC #### [facility] [address] [place], [place] [address] Gris Brenna MONO # 0.6 103/ul Normal 0.3-0.8 [facility] Comment on above: Performed By: #### C BC #### [facility] [address] [place], [place] [address] Gris Brenna Monocytes/100 WBC (Bld) 5.2 % Normal 1.7-12.0 [facility] Comment on above: Performed By: #### C BC #### [facility] [address] [place], [place] [address] Gris Ceja NEUT # 9.1 103/ul Critically high 1.4-6.5 [facility] Comment on above: Performed By: #### C BC #### [facility] [address] [place], [place] [address] Gris Ceja Neutrophils/100 WBC (Bld) 80.7 % Critically high 43.0-75.[address] [facility] Comment on above: Performed By: #### C BC #### [facility] [address] [place], [place] [address] Gris Ceja Platelet mean volume (Bld) [Entitic vol] 9.7 fL Normal 9.5-13.[address] [facility] Comment on above: Performed By: #### C BC #### [facility] [address] [place], [place] [address] Gris Ceja PLT 228 103/ul Normal 150-[address] [facility] Comment on above: Performed By: #### C BC #### [facility] [address] [place] [address] Gris Lauen RBC 4.10 106/ul Critically low 4.20-5.40 [facility] Comment on above: Performed By: #### C BC #### [facility] [address] [place], [place] [address] Gris Ceja WBC 11.2 103/ul Critically high 4.0-11.0 [facility] Comment on above: Performed By: #### C BC #### [facility] [address] [place] [address] ABD/PELVIS WO CONon 10-12 [...] MARINA HARTMANN Date: 2020-10-11 23:05 Normal [facility]15 SARS-CoV-2 (COVID-19) RNA JAREK+probe Ql (Unsp spec) Not detected Normal NOT DETECTED [facility] Comment on above: Result Comment: This test is not yet approved or cleared by the [place] FDA. When there are no FDA-approved or cleared tests available, and other criteria are met, FDA can make tests available under an emergency access mechanism called an Emergency Use Authorization (EUA). The EUA for this test is supported by the [employer] of Health and Human Service's (HHS's) declaration [...] consistent with SARS-CoV-2. Performed By: #### C VDTB #### [facility] [address] [place] [id number] Gris Brenna PREG HCG QUALon 10-12-2020 , QUAL Negative Normal NEGATIVE [facility] Comment on above: Performed By: #### P REG ####[facility] [id number] [place], [place] [address]Mxeomt Karen PROF 14(COMP METB)on 021 Albumin [Mass/Vol] 3.4 g/dL Critically low 3.5-5.[address] [facility] Comment on above: Performed By: #### C MP #### [facility] [address] [place] [id number] Gris Brenna Albumin/Globulin [Mass ratio] 1.0 {ratio} Normal [facility] Comment on above: Performed By: #### C MP #### [facility] [address] [place], [place] [address] Gris Brenna ALP [Catalytic activity/Vol] 69 U/L Normal 38-[address] [facility] Comment on above: Performed By: #### C MP #### [facility] [address] [place], [place] [address] Gris Brenna ALT [Catalytic activity/Vol] 15 U/L Normal 9-52 [facility] Comment on above: Performed By: #### C MP #### [facility] [address] [place], [place] [address] Gris Brenna Anion gap [Moles/Vol] 11.2 mmol/L Normal [facility] Comment on above: Performed By: #### C MP #### [facility] [address] [place], [place] [address] Gris Brenna AST [Catalytic activity/Vol] 15 U/L Normal 14-[address] [facility] Comment on above: Performed By: #### C MP #### [facility] [address] [place], [place] [address] Gris Brenna Bilirubin [Mass/Vol] 0.4 mg/dL Normal 0.2-1.[address] [facility] Comment on above: Performed By: #### C MP #### [facility] [address] [place] [id number] Gris Brenna Calcium [Mass/Vol] 8.2 mg/dL Critically low 8.4-10.[address] [facility] Comment on above: Performed By: #### C MP #### [facility] [address] [place] [address] Gris Brenna Chloride [Moles/Vol] 108 mmol/L Critically high 98-107 [facility] Comment on above: Performed By: #### C MP #### [facility] [address] [place] [address] Gris Brenna CO2 [Moles/Vol] 25.5 mmol/L Normal 22.0-30.0 [facility] Comment on above: Performed By: #### C MP #### [facility] [address] [place] [address] Gris Brenna Creatinine [Mass/Vol] 0.72 mg/dL Normal 0.52-1.04 [facility] Comment on above: Performed By: #### C MP #### [facility] [address] [place] [id number] Gris Brenna EGFR-AF NORWEGIAN >60 Normal >=60 [facility] Comment on above: Performed By: #### C MP #### [facility] [address] [place] [address] Girs Brenna EGFR-NON AF NORWEGIAN >60 Normal >=[address] [facility] Comment on above: Performed By: #### C MP #### [facility] [address] [place] [id number] Gris Brenna Globulin (S) [Mass/Vol] 3.4 g/dL Normal [facility] Comment on above: Performed By: #### C MP #### [facility] [address] [place] [id number] Gris Brenna Glucose [Mass/Vol] 123 mg/dL Critically high 74-106 [facility] Comment on above: Performed By: #### C MP #### [facility] [address] [place] [address] Gris Brenna Potassium [Moles/Vol] 4.7 mmol/L Normal 3.4-5.0 [facility] Comment on above: Performed By: #### C MP #### [facility] [address] [place] [address] Gris Brenna Protein [Mass/Vol] 6.8 g/dL Normal 6.1-8.2 [facility] Comment on above: Performed By: #### C MP #### [facility] [address] [place] [address] Gris Brenna Sodium [Moles/Vol] 140 mmol/L Normal 137-145 [facility] Comment on above: Performed By: #### C MP #### [facility] [address] [place] [address] Gristej Ceja Urea nitrogen [Mass/Vol] 7.0 mg/dL Normal 7.0-17.0 [facility] Comment on above: Performed By: #### C MP #### [facility] [address] [place] [address] Gris Ceja Urea nitrogen/Creatinine [Mass ratio] 9.7 mg/mg Normal [facility] Comment on above: Performed By: #### C MP #### [facility] [address] [place] [id number] Gris Ceja RAPID COVID-19 ANTIGENon EUA Statement SEE BELOW Normal [facility] Comment on above: Result Comment: This [...] sooner. Performed By: #### C VDAG #### [facility] [address] [place], [place] [address] Gris Ceja SARS-CoV-2 (COVID-19) RNA JAREK+probe Ql (Unsp spec) Negative Normal NEGATIVE [facility] Comment on above: Result Comment: Nega tive results are presumptive. They do not preclude infection and should not be used as the sole basis for treatment decisions. Additional confirmatory testing by a molecular method should be considered. Performed By: #### C VDAG #### [facility] [address] [place], [place] [address] Gris Ceja AMYLASEon 10-11-2020 Amylase [Catalytic activity/Vol] 41 U/L Normal 31-110 [facility] Comment on above: Performed By: #### C RUTHY VENTURA AMY #### [facility] [address] [place], [place] [address] Gris Ceja CBC AUTO DIFFon 10-11-2020 BASO # 0.0 103/ul Normal 0.0-0.1 [facility] Comment on above: Performed By: #### C BC #### [facility] [address] [place], [place] [address] Gris Ceja Basophils/100 WBC (Bld) 0.1 % Critically low 0.2-2.0 [facility] Comment on above: Performed By: #### C BC #### [facility] [address] [place], [place] [address] Gris Ceja EO # 0.1 103/ul Normal 0.0-0.[address] [facility] Comment on above: Performed By: #### C BC #### [facility] [address] [place], [place] [address] Gris Ceja Eosinophils/100 WBC (Bld) 1.3 % Normal 0.9-7.[address] [facility] Comment on above: Performed By: #### C BC #### [facility] [address] [place], [place] [address] Gris Ceja Erythrocyte distribution width (RBC) [Ratio] 12.3 % Normal 11.0-15.[address] [facility] Comment on above: Performed By: #### C BC #### [facility] [address] [place] [address] Gris Brenna Hematocrit (Bld) [Volume fraction] 36.9 % Normal 36.0-48.0 [facility] Comment on above: Performed By: #### C BC #### [facility] [address] [place] [address] Gris Brenna Hemoglobin (Bld) [Mass/Vol] 12.6 g/dL Normal 12.0-16.0 [facility] Comment on above: Performed By: #### C BC #### [facility] [address] [place] [address] Gris Brenna IG # 0.01 10e3/ul Normal 0.00-0.03 [facility] Comment on above: Performed By: #### C BC #### [facility] [address] [place] [address] Gris Brenna IG % 0.1 % Normal 0.0-0.5 [facility] Comment on above: Performed By: #### C BC #### [facility] [address] [place] [address] Gris Brenna LYMPH # 2.4 103/ul Normal 1.2-3.8 [facility] Comment on above: Performed By: #### C BC #### [facility] [address] [place] [address] Gris Brenna Lymphocytes/100 WBC (Bld) 34.9 % Normal 20.5-60.0 [facility] Comment on above: Performed By: #### C BC #### [facility] [address] [place], [place] [address] Gris Brenna MANUAL DIFF REQ NO Normal [facility] Comment on above: Performed By: #### C BC #### [facility] [address] [place], [place] [address] Gris Brenna MCH (RBC) [Entitic mass] 29.3 pg Normal 26.7-34.0 [facility] Comment on above: Performed By: #### C BC #### [facility] [address] [place] [address] Gris Ceja MCHC (RBC) [Mass/Vol] 34.1 g/dL Normal 29.9-35.[address] [facility] Comment on above: Performed By: #### C BC #### [facility] [address] [id number] Gris Ceja MCV (RBC) [Entitic vol] 85.8 fL Normal 81.0-99.[address] [facility] Comment on above: Performed By: #### C BC #### [facility] [address] [place] [address] Gristej Lauen MONO # 0.4 103/ul Normal 0.3-0.[address] [facility] Comment on above: Performed By: #### C BC #### [facility] [address] [place] [address] Gris Ceja Monocytes/100 WBC (Bld) 6.4 % Normal 1.7-12.[address] [facility] Comment on above: Performed By: #### C BC #### [facility] [address] [place] [address] Gristej Lauen NEUT # 3.9 103/ul Normal 1.4-6.[address] [facility] Comment on above: Performed By: #### C BC #### [facility] [address] [place], [place] [id number] Gris Ceja Neutrophils/100 WBC (Bld) 57.2 % Normal 43.0-75.[address] [facility] Comment on above: Performed By: #### C BC #### [facility] [address] [place], [place] [id number] Gristej Ceja Platelet mean volume (Bld) [Entitic vol] 9.3 fL Critically low 9.5-13.[address] [facility] Comment on above: Performed By: #### C BC #### [facility] [address] [place], [place] [id number] Gris Brenna PLT 227 103/ul Normal 150-[address] [facility] Comment on above: Performed By: #### C BC #### [facility] [address] [place], [place] [id number] Gris Brenna RBC 4.30 106/ul Normal 4.20-5.40 [facility] Comment on above: Performed By: #### C BC #### [facility] [address] [place] [address] Gris Brenna WBC 6.9 103/ul Normal 4.0-11.0 [facility] Comment on above: Performed By: #### C BC #### [facility] [address] [place], [place] [id number] Gris Brenna LIPASEon 10-11-2020 Lipase [Catalytic activity/Vol] 193.0 U/L Normal 23.0-300.0 [facility] Comment on above: Performed By: #### C RUTHY VENTURA AMY #### [facility] [address] [place] [address] Gris Brenna PROF 14(COMP METB)on 021 Albumin [Mass/Vol] 4.0 g/dL Normal 3.5-5.0 [facility] Comment on above: Performed By: #### C RUTHY VENTURA KATELYN #### [facility] [address] [place] [address] Gris Brenna Albumin/Globulin [Mass ratio] 1.1 {ratio} Normal [facility] Comment on above: Performed By: #### C RUTHY VENTURA KATELYN #### [facility] [address] [place] [address] Gris Brenna ALP [Catalytic activity/Vol] 78 U/L Normal 38-[address] [facility] Comment on above: Performed By: #### C RUTHY VENTURA KATELYN #### [facility] [address] [place] [address] Gris Brenna ALT [Catalytic activity/Vol] 10 U/L Normal 9-52 [facility] Comment on above: Performed By: #### C RUTHY VENTURA KATELYN #### [facility] [address] [place] [address] Gris Brenna Anion gap [Moles/Vol] 15.4 mmol/L Normal [facility] Comment on above: Performed By: #### C RUTHY VENTURA KATELYN #### [facility] [address] [place] [address] Gris Brenna AST [Catalytic activity/Vol] 10 U/L Critically low 14-36 [facility] Comment on above: Performed By: #### C RUTHY VENTURA AMY #### [facility] [address] [place] [address] Gris Brenna Bilirubin [Mass/Vol] 0.3 mg/dL Normal 0.2-1.[address] [facility] Comment on above: Performed By: #### C RUTHY VENTURA, KATELYN #### [facility] [address] [place] [address] Gris Brenna Calcium [Mass/Vol] 8.8 mg/dL Normal 8.4-10.2 [facility] Comment on above: Performed By: #### C RUTHY VENTURA KATELYN #### [facility] [address] [place] [address] Gris Brenna Chloride [Moles/Vol] 106 mmol/L Normal 98-[address] [facility] Comment on above: Performed By: #### C RUTHY VENTURA KATELYN #### [facility] [address] [place] [address] Gris Brenna CO2 [Moles/Vol] 22.2 mmol/L Normal 22.0-30.0 [facility] Comment on above: Performed By: #### C RUTHY VENTURA, KATELYN #### [facility] [address] [place] [address] Gris Brenna Creatinine [Mass/Vol] 0.70 mg/dL Normal 0.52-1.[address] [facility] Comment on above: Performed By: #### C RUTHY VENTURA, KATELYN #### [facility] [address] [place] [address] Gris Brenna EGFR-AF NORWEGIAN >60 Normal >=60 [facility] Comment on above: Performed By: #### C RUTHY VENTURA, KATELYN #### [facility] [address] [place] [address] Gris Brenna EGFR-NON AF NORWEGIAN >60 Normal >=[address] [facility] Comment on above: Performed By: #### C RUTHY VENTURA, KATELYN #### [facility] [address] [address] Gris Brenna Globulin (S) [Mass/Vol] 3.7 g/dL Normal [facility] Comment on above: Performed By: #### C RUTHY VENTURA, KATELYN #### [facility] [address] [address] Gris Brenna Glucose [Mass/Vol] 139 mg/dL Critically high 74-106 [facility] Comment on above: Performed By: #### C RUTHY VENTURA, KATELYN #### [facility] [address] [address] Gris Brenna Potassium [Moles/Vol] 3.6 mmol/L Normal 3.4-5.0 [facility] Comment on above: Performed By: #### C RUTHY VENTURA, KATELYN #### [facility] [address] [place] [address] Gris Brenna Protein [Mass/Vol] 7.7 g/dL Normal 6.1-8.2 [facility] Comment on above: Performed By: #### C RUTHY VENTURA, KATELYN #### [facility] [address] [place] [address] Gris Brenna Sodium [Moles/Vol] 140 mmol/L Normal 137-145 [facility] Comment on above: Performed By: #### C RUTHY VENTURA, KATELYN #### [facility] [address] [place] [address] Gris Brenna Urea nitrogen [Mass/Vol] 10.0 mg/dL Normal 7.0-17.0 [facility] Comment on above: Performed By: #### C RUTHY VENTURA, KATELYN #### [facility] [address] [address] Gris Brenna Urea nitrogen/Creatinine [Mass ratio] 14.3 mg/mg Normal [facility] Comment on above: Performed By: #### C RUTHY VENTURA, KATELYN #### [facility] [address] [address] Gris Brenna Vital Signs Date Time Vital Sign Value Performing Clinician Facility 05-02-2024 13:30-0500 Body mass index (BMI) [Ratio] 28.92 kg/m2 Shravan Jose DO Work Phone: [facility] 05-02-2024 13:30-0500 Body weight 71.72 kg Shravan Jose DO Work Phone: [facility] 05-02-2024 13:30-0500 Diastolic blood pressure 80 mm[Hg] Shravan Jose DO Work Phone: [facility] 05-02-2024 13:30-0500 Systolic blood pressure 130 mm[Hg] Shravan Jose DO Work Phone: [facility] 04-19-2024 09:05-0500 Body mass index (BMI) [Ratio] 29.23 kg/m2 Katelyn Jayson PA Work Phone: [facility] 04-19-2024 09:05-0500 Body weight 72.48 kg Katelyn Hawthorne PA Work Phone: [facility] 04-19-2024 09:05-0500 Diastolic blood pressure 70 mm[Hg] Katelyn Hawthorne PA Work Phone: [facility] 04-19-2024 09:05-0500 Systolic blood pressure 110 mm[Hg] Katelyn Jayson PA Work Phone: [facility] 03-15-2024 09:15-0400 Body mass index (BMI) [Ratio] 29.56 kg/m2 Katelyn Hawthorne PA Work Phone: [facility] 03-15-2024 09:15-0400 Body weight 73.3 kg Katelyn Jayson PA Work Phone: [facility] 03-15-2024 09:15-0400 Diastolic blood pressure 74 mm[Hg] Katelyn Hawthorne PA Work Phone: [facility] 03-15-2024 09:15-0400 Systolic blood pressure 116 mm[Hg] Katelyn Hawthorne PA Work Phone: [facility] 02-14-2024 09:42-0400 Body mass index (BMI) [Ratio] 30.57 kg/m2 Katelyn Hawthorne PA Work Phone: [facility] 02-14-2024 09:42-0400 Body weight 75.81 kg Katelyn Tyler PA Work Phone: [facility] 02-14-2024 09:42-0400 Diastolic blood pressure 72 mm[Hg] Katelyn Tyler PA Work Phone: [facility] 02-14-2024 09:42-0400 Systolic blood pressure 114 mm[Hg] Katelyn Tyler PA Work Phone: [facility] 02-25-2023 09:20-0400 Body height 157.48 cm Tania De Anda Other [facility] Other 02-25-2023 09:20-0400 Body mass index (BMI) [Ratio] 27.98 kg/m2 Tania De Anda Other [facility] Other 02-25-2023 09:20-0400 Body temperature 98.1 [degF] Tania De Anda Other [facility] Other 02-25-2023 09:20-0400 Body weight 69.4 kg Tania De Anda Other [facility] Other 02-25-2023 09:20-0400 Diastolic blood pressure 58 mm[Hg] Tania De Anda Other [facility] Other 02-25-2023 09:20-0400 Respiratory rate 18 /min Tania De Anda Other [facility] Other 02-25-2023 09:20-0400 SaO2% (BldA) [Mass fraction] 99 % Tania De Anda Other [facility] Other 02-25-2023 09:20-0400 Systolic blood pressure 104 mm[Hg] Tania De Anda Other [facility] [employer] Other Encounters Encounter Date Encounter Type Care Provider Facility Start: 05-02-2024 End: 05-02-2024 Patient encounter procedure Shravan Garcia DO Work Phone: [facility] Comment on above: Pre-operative exam; Menorrhagia with regular cycle; Abnormal uterine bleeding (AUB); Pelvic pain in female; Request for sterilization Start: 05-02-2024 End: 05-02-2024 Preprocedural examination done Shravan Garcia DO Work Phone: [facility] Work Phone: Start: 04-19-2024 End: 04-19-2024 Bamboo flowsheet Katelyn HOLLIS Work Phone: [facility] Start: 04-19-2024 End: 04-19-2024 Bamboo flowsheet Katelyn HOLLIS Work Phone: [facility] Start: 04-19-2024 End: 04-19-2024 ambulatory KATELYN JAYSON Not Available Start: 04-19-2024 End: 04-19-2024 Office outpatient visit 10 minutes Katelyn HOLLIS Work Phone: [facility] Comment on above: Encounter for weight management Start: 03-15-2024 End: 03-15-2024 Bamboo flowsheet Katelyn HOLLIS Work Phone: [facility] Start: 03-15-2024 End: 03-15-2024 Bamboo flowsheet Katelyn Tyler PA Work Phone: [facility] Start: 03-15-2024 End: 03-15-2024 ambulatory KATELYN JAYSON Not Available Start: 03-15-2024 End: 03-15-2024 Office outpatient visit 5 minutes Katelyn HOLLIS Work Phone: [facility] Comment on above: Encounter for weight management Start: 02-14-2024 End: 02-14-2024 Bamboo flowsheet Katelyn HOLLIS Work Phone: [facility] Start: 02-14-2024 End: 02-14-2024 Bamboo flowsheet Katelyn HOLLIS Work Phone: [facility] Start: 02-14-2024 End: 02-14-2024 Office outpatient visit 15 minutes Katelyn HOLLIS Work Phone: [facility] Comment on above: Encounter for weight management; Menorrhagia with regular cycle Start: 02-14-2024 End: 02-14-2024 ambulatory KATELYN JAYSON Not Available Start: 06-22-2023 End: 06-22-2023 ambulatory KATELYN JAYSON Not Available Start: 05-20-2023 End: 05-20-2023 ambulatory KATELYN JAYSON Not Available Start: 02-25-2023 End: 02-25-2023 ambulatory Tania De Anda Other [facility] Other Start: 02-25-2023 Office outpatient vi sit 15 minutes Tania De Anda [facility] Start: 04-23-2022 End: 04-24-2022 ambulatory Betzaida Zaldivar Facility[place] Start: 10-12-2020 End: 10-12-[address] TROY CELESTE Facility: Procedures Date Procedure Procedure Detail Performing Clinician Start: 05-02-2024 Urine test visual color cmprsn meths Shravan aGrcia DO Work Phone: Plan of Treatment Date Care Activity Detail Author Start: 06-20-2024 End: 06-20-2024 Patient encounter procedure 06/20/2024 9:00 AM EST Office Visit [facility] [address] [place] [address] Shravan Garcia DO [address] [place] [address] [facility] Start: 05-01-2024 End: 05-01-2024 Professional / ancillary services management 05/01/2024 9:30 AM EST Ancillary Procedure [facility] [address] [place] [address] [facility] Start: 04-27-2024 End: 04-27-2024 Patient encounter procedure 04/27/2024 9:30 AM EST Procedure Visit [facility] [address] [place] [phone] Shravan Garcia DO [address] [place] [address] [facility] Start: 03-20-2024 End: 03-20-2024 Professional / ancillary services management 03/20/2024 9:00 AM EST Ancillary Procedure [facility] [address] [place] [phone] [facility] Start: 03-15-2024 End: 03-15-2024 Patient encounter procedure 03/15/2024 8:50 AM EDT Office Visit [facility] [address] [place] [address] Katelyn Tyler PA [address] [place] [address] [facility] Start: 02-14-2024 End: 02-13-2025 aPTT in Blood by Coagulation assay APTT Lab Routine Menorrhagia with regular cycle Expected: 02/14/2024 (Approximate), Expires: 02/13/2025 [facility] Comment on above: Expected: 02/14/2024 (Approximate), Expires: 02/13/2025 Start: 02-14-2024 End: 02-13-2025 US for US PELVIS-TRANSVAG IF INDICATED Imaging Routine Menorrhagia with regular cycle Expected: 02/14/2024 (Approximate), Expires: 02/13/2025 [facility] Comment on above: Expected: 02/14/2024 (Approximate), Expires: 02/13/2025 Start: 02-14-2024 End: 02-14-2024 Patient encounter procedure 02/14/2024 9:10 AM EDT Office Visit [facility] [address] [place] [phone] Katelyn Tyler PA [address] [place] [address] [place] [address] Arrived [facility] Comment on above: Arrived CBC W Auto Different ial panel - Blood CBC and differential Lab Routine Menorrhagia with regular cycle Ordered: 02/14/[address] [facility] Work Phone: Comment on above: Ordered: 02/14/2024 hCG, quantitative, hCG, quantitative, Lab Routine Menorrhagia with regular cycle Ordered: 02/14/[address] [facility] Comment on above: Ordered: 02/14/2024 Hemoglobin A1c/Hemoglobin.total in Blood Hemoglobin A1c Lab Routine Menorrhagia with regular cycle Ordered: 02/14/[address] [facility] Comment on above: Ordered: 02/14/2024 Prothrombin time (PT ) in Blood by Coagulation assay Protime-INR Lab Routine Menorrhagia with regular cycle Ordered: 02/14/[address] [facility] Comment on above: Ordered: 02/14/2024 Thyrotropin [Units/volume] in Serum or Plasma TSH Lab Routine Menorrhagia with regular cycle Ordered: 02/14/[address] [facility] Comment on above: Ordered: 02/14/2024 Thyroxine (T4) free [Mass/volume] in Serum or Plasma T4, free Lab Routine Menorrhagia with regular cycle Ordered: 02/14/[address] [facility] Comment on above: Ordered: 02/14/2024 Tissue exam Tissue exam Path ology and Cytology Routine Menorrhagia with regular cycle Pre-operative exam Ordered: 05/02/[address] [facility] Work Phone: Comment on above: Ordered: 05/02/2024 Payers Date Payer Category Payer Unknown [id number] 2021 [facility] [id number] 2021 Unknown BCBS BCBS [id number] 2021-Present [phone] [address] [place] [address] [id number] 2021 [employer] [id number] 1986 Unknown [id number] 1986 Unknown [id number] 1986 Unknown [id number] 1986 Unknown [id number] 1986 Unknown [id number] 1259 1986 Unknown [id number] 1259 1986 Unknown [id number] 1959 Unknown [id number] Social History Date Type Detail Facility Start: 03-13-2023 End: 04-05-2023 Sex Assigned At [facility] Start: 10-21-2022 Tobacco smoking stat [facility] Never smoked tobacco [facility] Start: 10-21-2022 Tobacco use and exposure Smoke less tobacco non-user [facility] Start: 06-22-2023 End: 02-14-2024 Alcoholic beverage intake Current drinker of alcohol (finding) [facility] Start: 04-05-2023 End: 02-14-2024 Alcoholic beverage intake [facility] [...] [facility] History of Present illness Narrative 05-02-2024 Gina Ross, [employer] - 05/02/2024 1:00 PM EST Note Date & Type Note Facility 05-02-2024 History of Presen t illness Narrative Reason for Appointment: Patient ID: Leslye Patino is a 39 y.o. female who presents for EMBX and Pre-op Visit Patient presents today for Pre Op/Endometrial Biopsy appointment. Patient is scheduled to undergo Da Marleni assisted Bilateral Laparoscopic Salpingectomy and Endometrial Ablation with Zee on 05/26/[address] Garcia at [facility]. MEDICATIONS No current outpatient medications ALLERGIES No [...] SYSTEMS Review of Systems: Review of Systems Constitutional: Negative. HENT: Negative. Eyes: Negative. Respiratory: Negative. Cardiovascular: Negative. Gastrointestinal: Negative. Genitourinary: Positive for menstrual problem and pelvic pain. Musculoskeletal: Negative. Skin: Negative. Neurological: Negative. All other systems reviewed and are negative. Hematological: Negative. Endocrine: Negative. Allergic/Immunologic: Negative. OBJECTIVE Objective: Physical Exam Constitutional: Appearance: Normal appearance. She is well-developed. Genitourinary: Vulva normal. Cardiovascular: Rate and Rhythm: Normal rate and regular rhythm. Pulmonary: Effort: Pulmonary effort is normal. Breath sounds: Normal breath sounds. Abdominal: General: Bowel sounds are normal. There is no distension. Palpations: Abdomen is soft. Tenderness: There is no abdominal tenderness. There is no guarding or rebound. Musculoskeletal: General: No swelling. Normal range of motion. Right lower leg: No edema. Left lower leg: No edema. Neurological: Mental Status: She is alert and oriented to person, place, and time. Skin: General: Skin is warm and dry. Psychiatric: Mood and Affect: Mood normal. Behavior: Behavior normal. Vitals and nursing note reviewed. Exam conducted with a final finisher present. Vitals: Estimated body mass index is 28.92 kg/m as calculated from the following: Height as of 23: 5' 2 . Weight as of this encounter: 158 lb 1.9 oz. BP: 130/80 Patient's last menstrual period was 03/28/2024. ASSESSMENT & PLAN ICD-10-CM 1. Pre-operative exam Z01.818 POCT , urine manually resulted Tissue exam 2. Menorrhagia with regular cycle N92.0 POCT , urine manually resulted Tissue exam 3. Abnormal uterine bleeding (AUB) N93.9 4. Pelvic pain in female R10.2 5. Request for sterilization Z30.2 EMBX: Patient was placed in dorsal lithotomy position with feet in stirrups. A sterile speculum was placed into the vagina and the cervix was visualized. The cervix was grasped with a single tooth tenaculum. The endometrial pipette was placed through the cervix into the uterus, endometrial curettage was performed and sampling was obtained, endometrial curettings were placed in formalin, and single tooth tenaculum was removed. Excellent hemostasis was assured. All instruments were removed from vagina. Pre Op: Patient is doing well but has desire for sterilization and has complaints of bleeding and pelvic pain. Patient has tried hormone therapy in the past but all attempts to subside patients issues of bleeding have failed. I have discussed conservative management vs. surgical management with the patient in detail and patient desires surgical management at this time. Patient has voiced understanding that a Bilateral Salpingectomy is considered to be permanent and patient will undergo Da Marleni assisted Bilateral Laparoscopic Salpingectomy & Endometrial Ablation with Zee on 05/26/2024. Surgical consents were signed, mmc was reviewed, and patient is to proceed to [facility] OR. Follow Up: Patient is to follow up between 1-2 weeks post op to assess proper healing and recovery from procedure. Documented by Gina Ross LPN on behalf of: Shravan Garcia DO documented in this encounter [facility] History of Present illness Narrative 04-19-2024 [...] of TELMA Lopez documented in this encounter [facility] History of Present illness Narrative 02-14-2024 TELMA Lopez - 02/14/2024 9:10 AM EDT Note Date & Type Note Facility 02-14-2024 History of Presen t illness Narrative Reason for Appointment: Patient ID: Leslye Patino is a 38 y.o. female who presents for discuss cycles and Weight Management Patient presents today for Acute Visit. MEDICATIONS Current Outpatient Medications Medication Instructions phentermine (ADIPEX-P) 37.5 mg, Oral, Daily before breakfast ALLERGIES No Known Allergies PROBLEMS Active Ambulatory Problems Diagnosis Date Noted Abnormal weight gain 01/12/2023 Chronic fatigue 01/12/2023 Myopia of both eyes 01/12/2023 Yeast infection 01/12/2023 Resolved Ambulatory Problems Diagnosis Date Noted No Resolved Ambulatory Problems Past Medical History: Diagnosis Date Anxiety HISTORY PAST MEDICAL HISTORY SOCIAL HISTORY Past Medical History: Diagnosis Date Anxiety Chronic fatigue Myopia of both eyes 2008, 2010, 2017 Social History Tobacco Use Smoking status: Never [...] SYSTEMS Review of Systems: Review of Systems Constitutional: Negative. HENT: Negative. Eyes: Negative. Respiratory: Negative. Cardiovascular: Negative. Gastrointestinal: Negative. Genitourinary: Negative. Musculoskeletal: Negative. Skin: Negative. Neurological: Negative. All other systems reviewed and are negative. Hematological: Negative. Endocrine: Negative. Allergic/Immunologic: Negative. OBJECTIVE Objective: Physical Exam Constitutional: Appearance: Normal [...] reviewed. Vitals: Estimated body mass index is 30.57 kg/m as calculated from the following: Height as of 04/14/23: 5' 2 . Weight as of this encounter: 167 lb 1.9 oz. BP: 114/72 No LMP recorded. ASSESSMENT & PLAN ICD-10-CM 1. Encounter for weight management Z76.89 phentermine (Adipex-P) 37.5 MG tablet 2. Menorrhagia with regular cycle N92.0 CBC and differential TSH hCG, quantitative, Protime-INR T4, free APTT Hemoglobin A1c US PELVIS-TRANSVAG IF INDICATED APTT Patient states she is having increased menstral cycles with menorrhagia and pelvic pain. We discussed surgical options to help alleviate symptoms. Labs and US ordererd. Patient wishes to have ablation and salpingectomy. Patient also given one month supply of adipex and informed she will most likely not be eligible for refill due to bmi. Documented by TELMA Lopez on behalf of: TELMA Lopez documented in this encounter [facility] Evaluation note 02-25-2023 Note Date & Type [...] understanding and is agreeable at this time. [facility] Other Clinical Note 10-12-2020 Note Date & [...] by: BETZAIDA RIVERA Date: 2020-10-12 07:[address] [facility] Evaluation note Note Date & Type Note Facility Evaluation note Diagnosis Encounter for weight management documented in this encounter [facility] Evaluation note Note Date & Type Note Facility Evaluation note Diagnosis Pre-operative exam Unspecified pre-operative examination Menorrhagia with regular cycle Abnormal uterine bleeding (AUB) Pelvic pain in female Unspecified symptom associated with female genital organs Request for sterilization documented in this encounter [facility] Evaluation note Note Date & Type Note Facility Evaluation note Diagnosis Encounter for weight management Menorrhagia with regular cycle documented in this encounter [facility] Healthcare History general Narrative - Reported Note Date & Type Note Facility History general Narrative - Reported Type Medical History depression Surgical History tonsillectomy Surgical History pet placement Surgical History wisdom teeth Surgical History cholecystectomy Hospitalization History see above [facility] Other Summary Purpose Family History No Family History Records FoundNo Family History Records FoundNo Family History Records Found Advance Directives No Advanced Directives Records FoundNo Advanced Directives Records FoundNo Advanced Directives Records Found Additional Source Comments INFORMATION SOURCE (unrecogn ized section and content) DATE CREATED AUTHOR 10/18/2020 [facility] DATE CREATED AUTHOR AUTHOR'S ORGANIZ ATION 04/25/2022 [facility] DATE CREATED AUTHOR AUTHOR'S ORGANIZ ATION 04/21/2024 [facility] EPIC REASON FOR VISIT (unrecogniz ed section and content) Reason Comments Weight Management Reason Comments encounter for weight loss Reason Comments EMBX Pre-op Visit Reason Comments discuss cycles Weight Management FOR RECORDS PERTAINING TO PATIENTS WHO ARE [...] BE BASED ON THE PRIMARY CLINICAL RECORDS. [facility]. provides no warranty or guarantee of the accuracy or completeness of information in this document.
== END 2024-05-02 10:40 | disposition home or self-care (01) ==
LOC: LAB 05-05 10:41
PROVIDERS: Visit Provider Obstetrics & Gynecology
DX: N92.0 Excessive and frequent menstruation with regular cycle (principal); N71.9 Inflammatory disease of uterus, unspecified
CPT/HCPCS: 88305

== ENCOUNTER 2024-05-22 11:09 | Outpatient (OUT) | payer BC, SELFPAY | END 2024-05-22 11:10 | disposition home or self-care (01) | LOC: PST 11:10 | PROVIDERS: Visit Provider Obstetrics & Gynecology | DX: Z30.2 Encounter for sterilization (principal); N92.0 Excessive and frequent menstruation with regular cycle; N93.9 Abnormal uterine and vaginal bleeding, unspecified; R10.2 Pelvic and perineal pain ==

== ENCOUNTER 2024-05-22 12:01 | Outpatient (OUT) | payer BC, SELFPAY ==
[2024-05-22 12:31] LABS: Basophils Percent Auto 0.3 % (0.2-2.0); Eosinophils Absolute Auto 0.1 10^3/uL (0.0-0.7); Eosinophils Percent Auto 1.6 % (0.9-7.0); Hematocrit 39.4 % (36.0-48.0); Immature Granulocytes Abs Auto 0.01 10^3/uL (0.00-0.03); Immature Granulocytes Pct Auto 0.2 % (0.0-0.5); Lymphocytes Absolute Auto 1.5 10^3/uL (1.2-3.8); Lymphocytes Percent Auto 24.4 % (20.5-60.0); Mean Corpuscular Hemoglobin 28.9 pg (26.7-34.0); Mean Corpuscular Volume 87.6 fL (81.0-99.0); Mean Platelet Volume 9.3 fL (9.5-13.5); Monocytes Absolute Auto 0.3 10^3/uL (0.3-0.8); Monocytes Percent Auto 5.5 % (1.7-12.0); Neutrophils Absolute Auto 4.2 10^3/uL (1.4-6.5); Platelet Count 218 10^3/uL (150-450); Red Cell Distribution Width 12.5 % (11.0-15.0); White Blood Count 6.2 10^3/uL (4.0-11.0)
[2024-05-22 12:51] LABS: Estimated Average Glucose 100 mg/dL; Glycohemoglobin A1C 5.1 % (4.5-6.2)
[2024-05-22 13:08] LABS: HCG Quantitative <1 mIU/mL
[2024-05-22 13:16] LABS: INR 0.96; Partial Thromboplastin Time 28.7 sec (22.3-36.2); Prothrombin Time 10.2 sec (9.0-11.6)
[2024-05-22 13:39] LABS: Free T4 1.08 ng/dL (0.76-1.46)
== END 2024-05-22 12:02 | disposition home or self-care (01) ==
LOC: LAB 12:03
PROVIDERS: PCP Family Medicine; Visit Provider Physician Assistant
DX: N92.0 Excessive and frequent menstruation with regular cycle (principal)
CPT/HCPCS: 36415; 83036; 84439; 84443; 84702; 85025; 85610; 85730

== ENCOUNTER 2024-05-26 07:46 | Day surgery (SDC) | payer BC, SELFPAY ==
[2024-05-22 11:22] VITALS: BP 115/71; PULSE 82; TEMP 36.6; O2SAT 100; BMI 29.8
[2024-05-26] VITALS (8 sets, daily range): BP systolic 110–121; BP diastolic 68–82; PULSE 72–98; TEMP 36.1–36.3; O2SAT 94–100; BMI 29.7
--- OUTSIDE RECORDS SUMMARY | 2024-05-26 07:52 | XMS_ITS | CCD ---
Author Organization [facility] Informformerly [facility] Partnership [facility] Care Team Providers Care Farm Advisor Name Role Phone ROULA, DR TROY Sheets Attending Unavailable ROULA, DR TROY Sheets Admitting Unavailable TESMOND, AHMET Primary Care Unavailable LIANA, DR MARCUS Jones Consulting Unavailable GRILLIS, DR HARRIS Consulting Unavailable ROULA, DR TROY Sheets Consulting Unavailable AGUBOSIMNANCY Consulting Unavailable KONBETZAIDA GRIGGS Consulting Unavailable Luz Marina Hartmann Consulting Unavailable Betzaida Zaldivar Attending Unavailable Tania De Anda Unavailable Unavailable Primary Care Provider UnavailMILES Cheatham Attending Unavailable KATELYN TYLER Attending Unavailable JAYSON, KATELYN Attending Unavailable KATELYN TYLER Attending Unavailable KATELYN TYLER Attending Unavailable KATELYN TYLER Attending Unavailable Allergies Allergy Classification Reported Allergen(s) Allergy Type Date of Onset Reaction(s) Facility (1 source) No Known Medication Allergies; Translations: [No Known Medication Allergies] Propensity to adverse reactions (disorder) [facility] Repository Medications Current Medications Medication Drug Class(es) [...] directed Orally as directed for 6 days 13 Jun, 2022 Not-Taking Problems Active Problems Problem Classification Problem [...] for sterilization] 05-02-2024 Episodic Malaise and fatigue (10 sources) Fatigue; Translations: [Chronic fatigue, unspecified] Onset: [...] Da te Episodic/Chronic Blindness and vision defects (10 sources) Bilateral myopia of eyes; Translations: [Myopia, bilateral] Onset: 01-12-2023 01-12-2023 Episodic Mycoses (10 sources) Mycosis; Translations: [Candidiasis, unspecified] Onset: 01-12-2023 01-12-2023 Episodic Other nutritional; endocrine; and metabolic disorders (10 sources) Abnormal weight gain; Translations: [Abnormal weight gain] Onset: 01-12-2023 01-12-2023 Episodic Results Test Name Value Interpretation Reference Range Facility ALL CBC WITH AUTO DIFFon BASOPHILS ABSOLUTE AUTO 0 [facility] Basophils/100 WBC (Bld) 0.3 % 0.2 - 2.0 % [facility] Eosinophils/100 WBC (Bld) 1.6 % 0.9 - 7.0 % [facility] Erythrocyte distribution width (RBC) [Ratio] 12.5 % 11.0 - 15.0 % [facility] Hematocrit (Bld) [Volume fraction] 39.4 % 36.0 - 48.0 % [facility] Hemoglobin (Bld) [Mass/Vol] 13 g/dL 12.0 - 16.0 g/dL [facility] IMMATURE GRANULOCYTES ABS AUTO 0.01 [facility] Immature granulocytes/100 WBC (Bld) 0.2 % 0.0 - 0.5 % [facility] Interpretation and review of laboratory results Abnormal [facility] LYMPHOCYTES ABSOLUTE AUTO 1.5 [facility] Lymphocytes/100 WBC (Bld) 24.4 % 20.5 - 60.0 % [facility] MCH (RBC) [Entitic mass] 28.9 pg 26.7 - 34.0 pg [facility] MCHC (RBC) [Mass/Vol] 33 g/dL 29.9 - 35.2 g/dL [facility] MCV (RBC) [Entitic vol] 87.6 fL 81.0 - 99.0 fL [facility] MONOCYTES ABSOLUTE AUTO 0.3 [facility] Monocytes/100 WBC (Bld) 5.5 % 1.7 - 12.0 % [facility] NEUTROPHILS ABSOLUTE AUTO 4.2 [facility] Neutrophils/100 WBC (Bld) 68 % 43.0 - 75.0 % [facility] Platelet mean volume (Bld) [Entitic vol] 9.3 fL Low 9.5 - 13.5 fL [facility] EO # 0.1 [facility] TB PLT 218 [facility] RBC 4.5 [facility] WBC 6.2 [facility] HCG ( test) Ql (U)o n 05-02-2024 Interpretation and review of laboratory results Normal [facility] Preg Test, Ur Negative Negative [facility] Quantiferon-TB Plus (Client Incubated)on 04-25-2022 Gamma interferon background IA Qn (Bld) 0.01 International_Unit/m L Invalid Interpretation Code [facility] Comment on above: Performed By: #### 3 [id number] #### [facility] [address] [place] [address] M. tuberculosis stim IFN-g by CD4+ CD8+ T-cells corrected for background Qn (Bld) 0.01 International_Unit/m L Invalid Interpretation Code [facility] Comment on above: Performed By: #### 3 [id number], [id number], [id number] #### [facility] [address] [place] [address] M. tuberculosis stim IFN-g by CD4+ T-cells corrected for background Qn (Bld) 0.00 International_Unit/m L Invalid Interpretation Code [facility] Comment on above: Performed By: #### 3 [id number], [id number], [id number] #### [facility] [address] [place] [address] M. tuberculosis stim IFN-g Ql (Bld) [Interp] Negative Invalid Interpretation Code Negative [facility] Comment on above: Result Comment: No r [...] interferon gamma. Chemiluminescence immunoassay methodology Performed at: [address] [id number] PhD Sarika Olivia Performed By: #### 3 [id number], [id number], [id number] #### [facility] [address] [place] [address] Mitogen stimulated gamma interferon Qn (Bld) >10.00 Invalid Interpretation Code [facility] Comment on above: Performed By: #### 3 [id number], [id number], [id number] #### [facility] [address] [place] [address] Service comment (Unsp spec) [Interp] Comment Invalid Interpretation Code [facility] Comment on above: Result Comment: Jt tiFERON-TB [...] for the test. Performed By: #### 3 [id number], [id number], [id number] #### [facility] [address] [place] [address] Hep Bs Abon 04-24-2022 HBV surface Ab Ql (S) Non-Reactive Invalid Interpretation Code [facility] Comment on above: Result Comment: Non Reactive: Inconsistent with immunity, less than 10 mIU/mL Reactive: Consistent with immunity, greater than 9.9 mIU/mL Performed at: [address] [id number] PhD Sarika Olivia Performed By: #### 3 [id number], [id number], [id number], [id number] #### [facility] [address] [place] [address] Measles/Mumps/Rubella Immuni tyon 04-24-2022 MeV IgG IA Qn (S) 283.0 A unit/mL Invalid Interpretation Code Immune >16.4 [facility] Comment on above: Result Comment: Nega tive <13.5 Equivocal 13.5 - 16.4 Positive >16.4 Presence of antibodies to Rubeola is presumptive evidence of immunity except when acute infection is suspected. Performed By: #### 3 [id number], [id number], [id number], [id number] #### [facility] [address] [place] [address] MuV IgG IA Qn (S) <9.0 Low Immune >10.9 [facility] Comment on above: Result Comment: Nega tive <9.0 Equivocal 9.0 - 10.9 Positive >10.9 A positive result generally indicates past exposure to Mumps virus or previous vaccination. Performed at: [facility] [address], [place] [id number] PhD Sarika Olivia Performed By: #### 3 [id number], [id number], [id number] #### [facility] [address] [place] [address] Rubella virus IgG Qn (S) 2.03 [IU]/mL Invalid Interpretation Code Immune >0.99 [facility] Comment on above: Result Comment: Non- immune <0.90 Equivocal 0.90 - 0.99 Immune >0.99 Performed By: #### 3 [id number], [id number], [id number] #### [facility] [address] [place] [address] Varic IgGon 04-24-2022 VZV IgG IA Qn (S) 638 Invalid Interpretation Code Immune >165 [facility] Comment on above: Result Comment: Nega tive <135 Equivocal 135 - 165 Positive >165 A positive result generally indicates exposure to the pathogen or administration of specific immunoglobulins, but it is not indication of active infection or stage of disease. Performed at: [facility] [address], [place] [id number] PhD Sarika Olivia Performed By: #### 3 [id number], [id number], [id number], [id number] #### [facility] [address] [place] [address] Physician Orderon 04-23-2022 Physician Order [id number] Normal [facility] CBC AUTO DIFFon 10-12-2020 BASO # 0.0 103/ul Normal 0.0-0.1 [facility] Comment on above: Performed By: #### C BC #### [facility] [address] [address] Gris Ceja Basophils/100 WBC (Bld) 0.1 % Critically low 0.2-2.0 [facility] Comment on above: Performed By: #### C BC #### [facility] [address] [place] [address] Gris Brenna EO # 0.0 103/ul Normal 0.0-0.7 [facility] Comment on above: Performed By: #### C BC #### [facility] [address] [place] [address] Gris Brenna Eosinophils/100 WBC (Bld) 0.3 % Critically low 0.9-7.0 [facility] Comment on above: Performed By: #### C BC #### [facility] [address] [place] [address] Gris Brenna Erythrocyte distribution width (RBC) [Ratio] 12.3 % Normal 11.0-15.0 [facility] Comment on above: Performed By: #### C BC #### [facility] [address] [place] [address] Gris Brenna Hematocrit (Bld) [Volume fraction] 36.0 % Normal 36.0-48.0 [facility] Comment on above: Performed By: #### C BC #### [facility] [address] [place] [address] Gris Brenna Hemoglobin (Bld) [Mass/Vol] 12.0 g/dL Normal 12.0-16.0 [facility] Comment on above: Performed By: #### C BC #### [facility] [address] [place] [address] Gris Brenna IG # 0.02 10e3/ul Normal 0.00-0.03 [facility] Comment on above: Performed By: #### C BC #### [facility] [address] [place] [address] Gris Brenna IG % 0.2 % Normal 0.0-0.5 [facility] Comment on above: Performed By: #### C BC #### [facility] [address] [place] [address] Gris Brenna LYMPH # 1.5 103/ul Normal 1.2-3.8 [facility] Comment on above: Performed By: #### C BC #### [facility] [address] [place] [address] Gris Brenna Lymphocytes/100 WBC (Bld) 13.5 % Critically low 20.5-60.0 [facility] Comment on above: Performed By: #### C BC #### [facility] [address] [place], [place] [id number] Gris Brenna MANUAL DIFF REQ NO Normal [facility] Comment on above: Performed By: #### C BC #### [facility] [address] [place], [place] [id number] Gris Brenna MCH (RBC) [Entitic mass] 29.3 pg Normal 26.7-34.0 [facility] Comment on above: Performed By: #### C BC #### [facility] [address] [place] [address] Gristej Lauen MCHC (RBC) [Mass/Vol] 33.3 g/dL Normal 29.9-35.2 [facility] Comment on above: Performed By: #### C BC #### [facility] [address] [place], [place] [id number] Gris Brenna MCV (RBC) [Entitic vol] 87.8 fL Normal 81.0-99.0 [facility] Comment on above: Performed By: #### C BC #### [facility] [address] [place], [place] [id number] Gris Brenna MONO # 0.6 103/ul Normal 0.3-0.8 [facility] Comment on above: Performed By: #### C BC #### [facility] [address] [place], [place] [id number] Gris Brenna Monocytes/100 WBC (Bld) 5.2 % Normal 1.7-12.0 [facility] Comment on above: Performed By: #### C BC #### [facility] [address] [place], [place] [id number] Gris Brenna NEUT # 9.1 103/ul Critically high 1.4-6.5 [facility] Comment on above: Performed By: #### C BC #### [facility] [address] [place], [place] [address] Gris Ceja Neutrophils/100 WBC (Bld) 80.7 % Critically high 43.0-75.0 [facility] Comment on above: Performed By: #### C BC #### [facility] [address] [place], [place] [address] Gris Ceja Platelet mean volume (Bld) [Entitic vol] 9.7 fL Normal 9.5-13.5 [facility] Comment on above: Performed By: #### C BC #### [facility] [address] [place], [place] [address] Gris Ceja PLT 228 103/ul Normal 150-450 [facility] Comment on above: Performed By: #### C BC #### [facility] [address] [place] [address] Gris Ceja RBC 4.10 106/ul Critically low 4.20-5.40 [facility] Comment on above: Performed By: #### C BC #### [facility] [address] [place] [address] Gris Ceja WBC 11.2 103/ul Critically high 4.0-11.[address] [facility] Comment on above: Performed By: #### C BC #### [facility] [address] [place] [address] ABD/PELVIS WO CONon 10-12 [...] MARINA HARTMANN Date: 2020-10-11 23:05 Normal [facility] Covid-19 PCR (CVDTBH)on 09-15 SARS-CoV-2 (COVID-19) RNA JAREK+probe Ql (Unsp spec) Not detected Normal NOT DETECTED [facility] Comment on above: Result Comment: This test is not yet approved or cleared by the [place] FDA. When there are no FDA-approved or cleared tests available, and other criteria are met, FDA can make tests available under an emergency access mechanism called an Emergency Use Authorization (EUA). The EUA for this test is supported by the Computer Graphic Designer of Health and Human Service's (HHS's) declaration [...] SARS-CoV-2. Performed By: #### C VDTB #### [facility] [address] [place] [address] Gristej Ceja PREG HCG QUALon 10-12-2020 , QUAL Negative Normal NEGATIVE [facility] Comment on above: Performed By: #### P REG ####[facility] [address] [place], [place] [address]Ozsfav Brenna PROF 14(COMP METB)on 021 Albumin [Mass/Vol] 3.4 g/dL Critically low 3.5-5.0 [facility] Comment on above: Performed By: #### C MP #### [facility] [address] [place], [place] [address] Gris Ceja Albumin/Globulin [Mass ratio] 1.0 {ratio} Normal [facility] Comment on above: Performed By: #### C MP #### [facility] [address] [id number] Gris Brenna ALP [Catalytic activity/Vol] 69 U/L Normal 38-126 [facility] Comment on above: Performed By: #### C MP #### [facility] [address] [id number] Gris Brenna ALT [Catalytic activity/Vol] 15 U/L Normal 9-52 [facility] Comment on above: Performed By: #### C MP #### [facility] [address] [place], [place] [id number] Gris Brenna Anion gap [Moles/Vol] 11.2 mmol/L Normal [facility] Comment on above: Performed By: #### C MP #### [facility] [address] [place] [address] Gris Lauen AST [Catalytic activity/Vol] 15 U/L Normal 14-36 [facility] Comment on above: Performed By: #### C MP #### [facility] [address] [place], [place] [id number] Gris Brenna Bilirubin [Mass/Vol] 0.4 mg/dL Normal 0.2-1.3 [facility] Comment on above: Performed By: #### C MP #### [facility] [address] [place], [place] [address] Gris Brenna Calcium [Mass/Vol] 8.2 mg/dL Critically low 8.4-10.2 [facility] Comment on above: Performed By: #### C MP #### [facility] [address] [id number] Gris Brenna Chloride [Moles/Vol] 108 mmol/L Critically high 98-107 [facility] Comment on above: Performed By: #### C MP #### [facility] [address] [place] [address] Gris Brenna CO2 [Moles/Vol] 25.5 mmol/L Normal 22.0-30.[address] [facility] Comment on above: Performed By: #### C MP #### [facility] [address] [place] [address] Gris Brenna Creatinine [Mass/Vol] 0.72 mg/dL Normal 0.52-1.04 [facility] Comment on above: Performed By: #### C MP #### [facility] [address] [place] [address] Gris Brenna EGFR-AF CONGOLESE >60 Normal >=[address] [facility] Comment on above: Performed By: #### C MP #### [facility] [address] [place] [address] Gris Brenna EGFR-NON AF CONGOLESE >60 Normal >=60 [facility] Comment on above: Performed By: #### C MP #### [facility] [address] [place], [place] [id number] Gris Brenna Globulin (S) [Mass/Vol] 3.4 g/dL Normal [facility] Comment on above: Performed By: #### C MP #### [facility] [address] [place] [address] Gris Brenna Glucose [Mass/Vol] 123 mg/dL Critically high 74-106 [facility] Comment on above: Performed By: #### C MP #### [facility] [address] [place] [address] Gris Brenna Potassium [Moles/Vol] 4.7 mmol/L Normal 3.4-5.0 [facility] Comment on above: Performed By: #### C MP #### [facility] [address] [place] [address] Gris Brenna Protein [Mass/Vol] 6.8 g/dL Normal 6.1-8.2 [facility] Comment on above: Performed By: #### C MP #### [facility] [address] [place] [address] Gris Ceja Sodium [Moles/Vol] 140 mmol/L Normal 137-145 [facility] Comment on above: Performed By: #### C MP #### [facility] [address] [place] [address] Gris Ceja Urea nitrogen [Mass/Vol] 7.0 mg/dL Normal 7.0-17.0 [facility] Comment on above: Performed By: #### C MP #### [facility] [address] [place] [address] Gris Ceja Urea nitrogen/Creatinine [Mass ratio] 9.7 mg/mg Normal [facility] Comment on above: Performed By: #### C MP #### [facility] [address] [place] [address] Gris Ceja RAPID COVID-19 ANTIGENon EUA Statement SEE BELOW Normal [facility] Comment on above: Result Comment: This [...] sooner. Performed By: #### C VDAG #### [facility] [address] [place] [address] Gris Ceja SARS-CoV-2 (COVID-19) RNA JAREK+probe Ql (Unsp spec) Negative Normal NEGATIVE [facility] Comment on above: Result Comment: Nega tive results are presumptive. They do not preclude infection and should not be used as the sole basis for treatment decisions. Additional confirmatory testing by a molecular method should be considered. Performed By: #### C VDAG #### [facility] [address] [place], [place] [id number] Gris Brenna AMYLASEon 10-11-2020 Amylase [Catalytic activity/Vol] 41 U/L Normal 31-110 [facility] Comment on above: Performed By: #### C MP, LIPA, KATELYN #### [facility] [address] [place], [place] [id number] Gris Brenna CBC AUTO DIFFon 10-11-2020 BASO # 0.0 103/ul Normal 0.0-0.1 [facility] Comment on above: Performed By: #### C BC #### [facility] [address] [place], [place] [id number] Gris Brenna Basophils/100 WBC (Bld) 0.1 % Critically low 0.2-2.0 [facility] Comment on above: Performed By: #### C BC #### [facility] [address] [place] [address] Gris Brenna EO # 0.1 103/ul Normal 0.0-0.7 [facility] Comment on above: Performed By: #### C BC #### [facility] [address] [place], [place] [id number] Gris Brenna Eosinophils/100 WBC (Bld) 1.3 % Normal 0.9-7.0 [facility] Comment on above: Performed By: #### C BC #### [facility] [address] [place], [place] [id number] Gris Brenna Erythrocyte distribution width (RBC) [Ratio] 12.3 % Normal 11.0-15.0 [facility] Comment on above: Performed By: #### C BC #### [facility] [address] [place], [place] [id number] Gris Brenna Hematocrit (Bld) [Volume fraction] 36.9 % Normal 36.0-48.0 [facility] Comment on above: Performed By: #### C BC #### [facility] [address] [place], [place] [id number] Gris Brenna Hemoglobin (Bld) [Mass/Vol] 12.6 g/dL Normal 12.0-16.0 [facility] Comment on above: Performed By: #### C BC #### [facility] [address] [place] [address] Gris Brenna IG # 0.01 10e3/ul Normal 0.00-0.03 [facility] Comment on above: Performed By: #### C BC #### [facility] [address] [place] [address] Gris Brenna IG % 0.1 % Normal 0.0-0.5 [facility] Comment on above: Performed By: #### C BC #### [facility] [address] [place] [address] Gris Brenna LYMPH # 2.4 103/ul Normal 1.2-3.8 [facility] Comment on above: Performed By: #### C BC #### [facility] [address] [place] [address] Gris Brenna Lymphocytes/100 WBC (Bld) 34.9 % Normal 20.5-60.0 [facility] Comment on above: Performed By: #### C BC #### [facility] [address] [place] [address] Gris Brenna MANUAL DIFF REQ NO Normal [facility] Comment on above: Performed By: #### C BC #### [facility] [address] [place], [place] [id number] Gris Brenna MCH (RBC) [Entitic mass] 29.3 pg Normal 26.7-34.0 [facility] Comment on above: Performed By: #### C BC #### [facility] [address] [place] [address] Gris Brenna MCHC (RBC) [Mass/Vol] 34.1 g/dL Normal 29.9-35.2 [facility] Comment on above: Performed By: #### C BC #### [facility] [address] [place] [address] Gris Brenna MCV (RBC) [Entitic vol] 85.8 fL Normal 81.0-99.0 [facility] Comment on above: Performed By: #### C BC #### [facility] [address] [place] [address] Gris Ceja MONO # 0.4 103/ul Normal 0.3-0.8 [facility] Comment on above: Performed By: #### C BC #### [facility] [address] [place] [address] Gris Ceja Monocytes/100 WBC (Bld) 6.4 % Normal 1.7-12.0 [facility] Comment on above: Performed By: #### C BC #### [facility] [address] [place] [address] Gris Ceja NEUT # 3.9 103/ul Normal 1.4-6.5 [facility] Comment on above: Performed By: #### C BC #### [facility] [address] [place] [address] Gris Ceja Neutrophils/100 WBC (Bld) 57.2 % Normal 43.0-75.0 [facility] Comment on above: Performed By: #### C BC #### [facility] [address] [place] [address] Gris Ceja Platelet mean volume (Bld) [Entitic vol] 9.3 fL Critically low 9.5-13.5 [facility] Comment on above: Performed By: #### C BC #### [facility] [address] [place] [address] Gristej Ceja PLT 227 103/ul Normal 150-450 [facility] Comment on above: Performed By: #### C BC #### [facility] [address] [place], [place] [id number] Gristej Lauen RBC 4.30 106/ul Normal 4.20-5.40 [facility] Comment on above: Performed By: #### C BC #### [facility] [address] [place] [address] Gris Brenna WBC 6.9 103/ul Normal 4.0-11.0 [facility] Comment on above: Performed By: #### C BC #### [facility] [address] [place], [place] [id number] Gris Brenna LIPASEon 10-11-2020 Lipase [Catalytic activity/Vol] 193.0 U/L Normal 23.0-300.0 [facility] Comment on above: Performed By: #### C RUTHY VENTURA, KATELYN #### [facility] [address] [place] [address] Gris Brenna PROF 14(COMP METB)on 021 Albumin [Mass/Vol] 4.0 g/dL Normal 3.5-5.0 [facility] Comment on above: Performed By: #### C RUTHY VENTURA KATELYN #### [facility] [address] [place] [address] Gris Brenna Albumin/Globulin [Mass ratio] 1.1 {ratio} Normal [facility] Comment on above: Performed By: #### C RUTHY VENTURA, KATELYN #### [facility] [address] [place] [address] Gris Brenna ALP [Catalytic activity/Vol] 78 U/L Normal 38-126 [facility] Comment on above: Performed By: #### C RUTHY VENTURA, KATELYN #### [facility] [address] [place] [address] Gris Brenna ALT [Catalytic activity/Vol] 10 U/L Normal 9-52 [facility] Comment on above: Performed By: #### C RUTHY VENTURA, KATELYN #### [facility] [address] [place] [address] Gris Brenna Anion gap [Moles/Vol] 15.4 mmol/L Normal [facility] Comment on above: Performed By: #### C RUTHY VENTURA, KATELYN #### [facility] [address] [place] [address] Gris Bernna AST [Catalytic activity/Vol] 10 U/L Critically low 14-36 [facility] Comment on above: Performed By: #### C RUTHY VENTURA, KATELYN #### [facility] [address] [place] [address] Gris Brenna Bilirubin [Mass/Vol] 0.3 mg/dL Normal 0.2-1.3 [facility] Comment on above: Performed By: #### C RUTHY VENTURA AMY #### [facility] [address] [place] [address] Gris Brenna Calcium [Mass/Vol] 8.8 mg/dL Normal 8.4-10.2 [facility] Comment on above: Performed By: #### C RUTHY VENTURA AMY #### [facility] [address] [place] [address] Gris Brenna Chloride [Moles/Vol] 106 mmol/L Normal 98-107 [facility] Comment on above: Performed By: #### C RUTHY VENTURA AMY #### [facility] [address] [place] [address] Gris Brenna CO2 [Moles/Vol] 22.2 mmol/L Normal 22.0-30.[address] [facility] Comment on above: Performed By: #### C RUTHY VENTURA KATELYN #### [facility] [address] [place] [address] Gris Brenna Creatinine [Mass/Vol] 0.70 mg/dL Normal 0.52-1.04 [facility] Comment on above: Performed By: #### C RUTHY VENTURA KATELYN #### [facility] [address] [place] [address] Gris Brenna EGFR-AF CONGOLESE >60 Normal >=[address] [facility] Comment on above: Performed By: #### C RUTHY VENTURA KATELYN #### [facility] [address] [place] [address] Gris Brenna EGFR-NON AF CONGOLESE >60 Normal >=60 [facility] Comment on above: Performed By: #### C RUTHY VENTURA, KATELYN #### [facility] [address] [place] [address] Gris Brenna Globulin (S) [Mass/Vol] 3.7 g/dL Normal [facility] Comment on above: Performed By: #### C RUTHY VENTURA, KATELYN #### [facility] [address] [address] Gris Brenna Glucose [Mass/Vol] 139 mg/dL Critically high 74-106 T [facility] Comment on above: Performed By: #### C RUTHY VENTURA, KATELYN #### [facility] [address] [address] Gris Brenna Potassium [Moles/Vol] 3.6 mmol/L Normal 3.4-5.0 [facility] Comment on above: Performed By: #### C RUTHY VENTURA, KATELYN #### [facility] [address] [place] [address] Gris Brenna Protein [Mass/Vol] 7.7 g/dL Normal 6.1-8.2 The [facility] Comment on above: Performed By: #### C RUTHY VENTURA, KATELYN #### [facility] [address] [place] [address] Gris Brenna Sodium [Moles/Vol] 140 mmol/L Normal 137-145 [facility] Comment on above: Performed By: #### C RUTHY VENTURA, KATELYN #### [facility] [address] [address] Gris Brenna Urea nitrogen [Mass/Vol] 10.0 mg/dL Normal 7.0-17.0 [facility] Comment on above: Performed By: #### C RUTHY VENTURA, KATELYN #### [facility] [address] [place] [address] Gris Brenna Urea nitrogen/Creatinine [Mass ratio] 14.3 mg/mg Normal [facility] Comment on above: Performed By: #### C RUTHY VENTURA, KATELYN #### [facility] [address] [place] [address] Gris Brenna Vital Signs Date Time Vital Sign Value Performing Clinician Facility 05-02-2024 13:30-0500 Body mass index (BMI) [Ratio] 28.92 kg/m2 Miles [employer] Work Phone: [facility] 05-02-2024 13:30-0500 Body weight 71.72 kg Miles Jose [employer] Work Phone: [facility] 05-02-2024 13:30-0500 Diastolic blood pressure 80 mm[Hg] Miles Jose DO Work Phone: [facility] 05-02-2024 13:30-0500 Systolic blood pressure 130 mm[Hg] Miles Jose DO Work Phone: [facility] 04-19-2024 09:05-0500 Body mass index (BMI) [Ratio] 29.23 kg/m2 Katelyn [place] PA Work Phone: [facility] 04-19-2024 09:05-0500 Body weight 72.48 kg Katelyn [place] PA Work Phone: [facility] 04-19-2024 09:05-0500 Diastolic blood pressure 70 mm[Hg] Katelyn Jayson PA Work Phone: [facility] 04-19-2024 09:05-0500 Systolic blood pressure 110 mm[Hg] Katelyn Jayson PA Work Phone: [facility] 03-15-2024 09:15-0400 Body mass index (BMI) [Ratio] 29.56 kg/m2 Katelyn [place] PA Work Phone: [facility] 03-15-2024 09:15-0400 Body weight 73.3 kg Katelyn [place] PA Work Phone: [facility] 03-15-2024 09:15-0400 Diastolic blood pressure 74 mm[Hg] Katelyn Jayson PA Work Phone: [facility] 03-15-2024 09:15-0400 Systolic blood pressure 116 mm[Hg] Katelyn [place] PA Work Phone: [facility] 02-14-2024 09:42-0400 Body mass index (BMI) [Ratio] 30.57 kg/m2 Katelyn Jayson PA Work Phone: [facility] 02-14-2024 09:42-0400 Body weight 75.81 kg Katelyn Jayson PA Work Phone: [facility] 02-14-2024 09:42-0400 Diastolic blood pressure 72 mm[Hg] Katelyn Jayson PA Work Phone: [facility] 02-14-2024 09:42-0400 Systolic blood pressure 114 mm[Hg] Katelyn HOLLIS Work Phone: [facility] 02-25-2023 09:20-0400 Body height 157.48 cm Tania De Anda Other [employer] Other 02-25-2023 09:20-0400 Body mass index (BMI) [Ratio] 27.98 kg/m2 Tania De Anda Other [employer] Other 02-25-2023 09:20-0400 Body temperature 98.1 [degF] Tania De Anda Other [employer] Other 02-25-2023 09:20-0400 Body weight 69.4 kg Tania De Anda Other [employer] Other 02-25-2023 09:20-0400 Diastolic blood pressure 58 mm[Hg] Tania De Anda Other [employer] Other 02-25-2023 09:20-0400 Respiratory rate 18 /min Tania De Anda Other [employer] Other 02-25-2023 09:20-0400 SaO2% (BldA) [Mass fraction] 99 % Tania De Anda Other [employer] Other 02-25-2023 09:20-0400 Systolic blood pressure 104 mm[Hg] Tania De Anda Other [employer] Other Encounters Encounter Date Encounter Type Care Provider Facility Start: 05-22-2024 End: 05-22-2024 Clinisync Result Encounter Generic External Data Provider [facility] External Department Unsolicited Start: 05-22-2024 End: 05-22-2024 Clinisync Result Encounter Generic External Data Provider [facility] External Department Unsolicited Start: 05-02-2024 End: 05-02-2024 ambulatory MILES GARCIA Not Available Start: 05-02-2024 End: 05-02-2024 Patient encounter procedure Miles Manzanareso DO Work Phone: [facility] Comment on above: Pre-operative exam; Menorrhagia with regular cycle; Abnormal uterine bleeding (AUB); Pelvic pain in female; Request for sterilization Start: 05-02-2024 End: 05-02-2024 Preprocedural examination done Milespatricia Manzanareso DO Work Phone: [facility] Healthcare Work Phone: Start: 04-19-2024 End: 04-19-2024 Bamboo flowsheet Katelyn Tyler PA Work Phone: [facility] Start: 04-19-2024 End: 04-19-2024 Bamboo flowsheet Katelyn Tyler PA Work Phone: [facility] Start: 04-19-2024 End: 04-19-2024 ambulatory KATELYN TYLER Not Available Start: 04-19-2024 End: 04-19-2024 Office outpatient visit 10 minutes Katelyn HOLLIS Work Phone: [facility] Comment on above: Encounter for weight management Start: 03-15-2024 End: 03-15-2024 Bamboo flowsheet Katelyn Tyler PA Work Phone: [facility] Start: 03-15-2024 End: 03-15-2024 Bamboo flowsheet Katelyn Tyler PA Work Phone: [facility] Start: 03-15-2024 End: 03-15-2024 ambulatory KATELYN TYLER Not Available Start: 03-15-2024 End: 03-15-2024 Office outpatient visit 5 minutes Katelyn Tyler PA Work Phone: [facility] Comment on above: Encounter for weight management Start: 02-14-2024 End: 02-14-2024 Bamboo flowsheet Katelyn Tyler PA Work Phone: [facility] Start: 02-14-2024 End: 02-14-2024 Bamboo flowsheet Katelyn HOLLIS Work Phone: [facility] Start: 02-14-2024 End: 02-14-2024 Office outpatient visit 15 minutes Katelyn HOLLIS Work Phone: [facility] Comment on above: Encounter for weight management; Menorrhagia with regular cycle Start: 02-14-2024 End: 02-14-2024 ambulatory KATELYN TYLER Not Available Start: 06-22-2023 End: 06-22-2023 ambulatory KATELYN TYLER Not Available Start: 05-20-2023 End: 05-20-2023 ambulatory KATELYN TYLER Not Available Start: 02-25-2023 End: 02-25-2023 ambulatory Tania De Anda Other [employer] Other Start: 02-25-2023 Office outpatient vi sit 15 minutes Tania De Anda [facility] Start: 04-23-2022 End: 04-24-2022 ambulatory Betzaida Zaldivar Facility:[facility] Start: 10-12-2020 End: 10-12-[address] TROY CELESTE Facility: Procedures Date Procedure Procedure Detail Performing Clinician Start: 05-22-2024 ALL CBC WITH AUTO DIFF Katelyn HOLLIS Work Phone: Start: 05-02-2024 Urine test visual color cmprsn meths Miles Garcia DO Work Phone: Plan of Treatment Date Care Activity Detail Author Start: 06-20-2024 End: 06-20-2024 Patient encounter procedure 06/20/2024 9:00 AM EST Office Visit [facility] [address] [place] [address] Miles Garcia DO [address] [place] [address] [facility] Start: 05-01-2024 End: 05-01-2024 Professional / ancillary services management 05/01/2024 9:30 AM EST Ancillary Procedure [facility] [address] [place] [id number] [facility] Start: 04-27-2024 End: 04-27-2024 Patient encounter procedure 04/27/2024 9:30 AM EST Procedure Visit [facility] [address] [place] [address] Miles Garcia DO [address] [facility] [place] [address] [facility] Start: 03-20-2024 End: 03-20-2024 Professional / ancillary services management 03/20/2024 9:00 AM EST Ancillary Procedure [facility] [address] [place] [address] [facility] Start: 03-15-2024 End: 03-15-2024 Patient encounter procedure 03/15/2024 8:50 AM EDT Office Visit [facility] [address] [place] [address] Katelyn Tyler PA [address] [facility] [place] [address] [facility] Start: 02-14-2024 End: 02-13-2025 aPTT in Blood by Coagulation assay APTT Lab Routine Menorrhagia with regular cycle Expected: 02/14/2024 (Approximate), Expires: 02/13/2025 [facility] Comment on above: Expected: 02/14/2024 (Approximate), Expires: 02/13/2025 Start: 02-14-2024 End: 02-13-2025 US for US PELVIS-TRANSVAG IF INDICATED Imaging Routine Menorrhagia with regular cycle Expected: 02/14/2024 (Approximate), Expires: 02/13/2025 [facility] Comment on above: Expected: 02/14/2024 (Approximate), Expires: 02/13/2025 Start: 02-14-2024 End: 02-14-2024 Patient encounter procedure 02/14/2024 9:10 AM EDT Office Visit [facility] [address] [place] [address] Katelyn Tyler PA [address] [facility] [place] [address] Arrived [facility] Comment on above: Arrived CBC W Auto Different ial panel - Blood CBC and differential Lab Routine Menorrhagia with regular cycle Ordered: 02/14/2024 [facility] Work Phone: Comment on above: Ordered: 02/14/2024 hCG, quantitative, hCG, quantitative, Lab Routine Menorrhagia with regular cycle Ordered: 02/14/2024 [facility] Comment on above: Ordered: 02/14/2024 Hemoglobin A1c/Hemoglobin.total in Blood Hemoglobin A1c Lab Routine Menorrhagia with regular cycle Ordered: 02/14/2024 [facility] Comment on above: Ordered: 02/14/2024 Prothrombin time (PT ) in Blood by Coagulation assay Protime-INR Lab Routine Menorrhagia with regular cycle Ordered: 02/14/2024 [facility] Comment on above: Ordered: 02/14/2024 Thyrotropin [Units/volume] in Serum or Plasma TSH Lab Routine Menorrhagia with regular cycle Ordered: 02/14/2024 [facility] Comment on above: Ordered: 02/14/2024 Thyroxine (T4) free [Mass/volume] in Serum or Plasma T4, free Lab Routine Menorrhagia with regular cycle Ordered: 02/14/2024 [facility] Comment on above: Ordered: 02/14/2024 Tissue exam Tissue exam Path ology and Cytology Routine Menorrhagia with regular cycle Pre-operative exam Ordered: 05/02/2024 [facility] Work Phone: Comment on above: Ordered: 05/02/2024 Payers Date Payer Category Payer Unknown [id number] 2021 [facility] [employer] [id number] 2021 Unknown [employer] BCBS [id number] 2021-Present [phone] [address] [place] [address] [id number] 2021 [employer] [id number] 1986 Unknown [id number] 1986 Unknown [id number] 1986 Unknown [id number] 1259 1986 Unknown [id number] 1259 1986 Unknown [id number] 1259 1986 Unknown [id number] 1259 1986 Unknown [id number] 1259 1986 Unknown [id number] 1259 1959 Unknown [id number] Social History Date Type Detail Facility Start: 03-13-2023 End: 05-20-2023 Sex Assigned At [facility] Start: 10-21-2022 [facility] Start: 10-21-2022 Tobacco use and exposure Smoke less tobacco non-user [facility] Start: 02-14-2024 End: 05-02-2024 Alcoholic beverage intake Current drinker of alcohol [...] History of Present illness Narrative 05-02-2024 Gina Ross LPN - 05/02/2024 1:00 PM EST Note Date [...] on 05/26/[address] Garcia at [facility]. MEDICATIONS No current outpatient medications ALLERGIES No [...] nursing note reviewed. Exam conducted with a rail car operator present. Vitals: Estimated body mass index is [...] reviewed, and patient is to proceed to [facility] OR. Follow Up: Patient is to follow up between 1-2 weeks post op to assess proper healing and recovery from procedure. Documented by Gina Ross LPN on behalf of: Miles Garcia DO documented in this encounter [facility] History of Present illness Narrative 04-19-2024 [...] of: TELMA Lopez documented in this encounter [facility] Evaluation note 02-25-2023 Note Date & [...] understanding and is agreeable at this time. [employer] Other Clinical Note 10-12-2020 Note Date & [...] by: BETZAIDA RIVERA Date: 2020-10-12 07:50 [facility] Evaluation note Note Date & Type Note Facility Evaluation note Diagnosis Encounter for weight management documented in this encounter [facility] Healthcare Evaluation note Note Date & Type Note Facility Evaluation note Diagnosis Pre-operative exam Unspecified pre-operative examination Menorrhagia with regular cycle Abnormal uterine bleeding (AUB) Pelvic pain in female Unspecified symptom associated with female genital organs Request for sterilization documented in this encounter [facility] Evaluation note Note Date & Type Note Facility Evaluation note Diagnosis Encounter for weight management Menorrhagia with regular cycle documented in this encounter [facility] History general Narrative - Reported Note Date & Type Note Facility History general Narrative - Reported Type Medical History depression Surgical History tonsillectomy Surgical History pet placement Surgical History wisdom teeth Surgical History cholecystectomy Hospitalization History see above [employer] Other Summary Purpose Family History No Family History Records FoundNo Family History Records FoundNo Family History Records Found Advance Directives No Advanced Directives Records FoundNo Advanced Directives Records FoundNo Advanced Directives Records Found Additional Source Comments INFORMATION SOURCE (unrecogn ized section and content) DATE CREATED AUTHOR 10/18/2020 [facility] DATE CREATED AUTHOR AUTHOR'S ORGANIZ ATION 04/25/2022 [facility] DATE CREATED AUTHOR AUTHOR'S ORGANIZ ATION 05/05/2024 [facility] EPIC REASON FOR VISIT (unrecogniz [...] BE BASED ON THE PRIMARY CLINICAL RECORDS. [facility]. provides no warranty or guarantee of the accuracy or completeness of information in this document.
[2024-05-26 07:59] LABS: Basophils Percent Auto 0.2 % (0.2-2.0); Eosinophils Absolute Auto 0.1 10^3/uL (0.0-0.7); Eosinophils Percent Auto 1.6 % (0.9-7.0); Hematocrit 38.8 % (36.0-48.0); Hemoglobin 12.6 g/dL (12.0-16.0); Immature Granulocytes Abs Auto 0.01 10^3/uL (0.00-0.03); Immature Granulocytes Pct Auto 0.2 % (0.0-0.5); Lymphocytes Absolute Auto 1.9 10^3/uL (1.2-3.8); Lymphocytes Percent Auto 32.6 % (20.5-60.0); Mean Corpuscular HGB Conc 32.5 g/dL (29.9-35.2); Mean Corpuscular Hemoglobin 28.4 pg (26.7-34.0); Mean Corpuscular Volume 87.6 fL (81.0-99.0); Mean Platelet Volume 9.1 fL (9.5-13.5); Monocytes Absolute Auto 0.4 10^3/uL (0.3-0.8); Monocytes Percent Auto 6.5 % (1.7-12.0); Neutrophils Absolute Auto 3.4 10^3/uL (1.4-6.5); Neutrophils Percent Auto 58.9 % (43.0-75.0); Platelet Count 203 10^3/uL (150-450); Red Blood Count 4.43 10^6/uL (4.20-5.40); Red Cell Distribution Width 12.4 % (11.0-15.0); White Blood Count 5.7 10^3/uL (4.0-11.0)
[2024-05-26] MEDS: SCOPOLAMINE 1 MG/3 DAYS TRANSDERM PATCH 1 PATCH TD (08:24)
[2024-05-26] MEDS: FAMOTIDINE/PF 20 MG/2 ML VIAL IV (08:24)
[2024-05-26] MEDS: LACTATED RINGER'S SOLUTION 1,000 ML 50 ML IV ×2 (08:25→10:50)
[2024-05-26 08:29] LABS: HCG Quantitative <1 mIU/mL
--- NOTE | 2024-05-26 10:08 | PM.ONB ---
Brief Operative Note Date of procedure: 05/26/24 Pre-op diagnosis general: menorrhagia, desires permanent sterilization Post-op diagnosis: same as pre-op Procedure: NAME OF PROCEDURE: robotic assisted Laparoscopic bilateral salpingectomy, with Zee endometrial ablation with hysteroscopy PROCEDURE: The patient was taken back to the OR where she was prepped and draped in the normal sterile fashion after being placed in the dorsal lithotomy position, after being placed under general anesthesia without difficulty. a weighted speculum was then placed into the vagina. Pap and endometrial bx were performed without difficultyThe anterior lip was grasped with a single tooth tenaculum. The patient was then sounded to approximatley 9cm. The patient was gently sounded using Hegar dilators and the hysteroscope was passed through the cervix into the uterus where both ostia were seen. No gross evidence of polyps, fibroids or malignancy. The cervical length was noted to be 4cm. The Zee ablation apparatus was set to approximately 5cm in length. This was placed in through the cervix and into the uterus. After the seal was tested, at that time the total ablation of 120 seconds was performed with the Zee without difficulty. All instruments were removed from the vagina. A wet sponge stick was placed into the patient's vagina. Attention was then turned to the patient's abdomen, where a scalpel was used to make a small infraumbilical incision. The S retractors were then used to dissect the underlying layers until the fascia could be seen. The fascia was then grasped with Flynn clamps and tented up. A knife was then used to make a small incision to the fascia. The muscle was identified, at that time two sutures of #0 Vicryl on a GI needlewas then used and placed through the fascia. The peritoneum was then identified and entered bluntly. The 10-4 Betty was then placed into the patient's abdomen. This was confirmed with direct visualization of the bowel, using the laparoscope. The patient's abdomen was then insufflated using approximately 4 liters of CO2 gas. Survey of the patient's abdomen demonstrated normal appearing ovaries, uterus and tubes. A second and third lateral robotic ports, which was 8mm in size, was then placed laterally after incision was made in the skin under direct visualization. the robotic arms were engaged. The patient's tube on the patient's right side was identified. The tube was then tented up using a grasper. The ligasure was used to transect and coagulate the mesosalpingx from the fimbriated end to the insertion at the uterus, the tube was amputated and removed in its entirety.? Excellent hemostasis was noted. ?This was performed on the contralateral sideas well. The lateral ports were then moved under direct visualization with excellent hemostasis. The abdomen was deinsufflated. All instruments were removed from the patient's abdomen. The fascia was closed using the #0 Vicryl on GI needle. The skin was closed using 4-0 Vicryl subcuticularly. All instruments were removed from the patient's vagina as well. The patient was taken out of the dorsal lithotomy position and placed in the supine position and taken to recovery in stable condition. Sponge, lap and needle counts were correct x2. ??? Anesthesia: TABITHA Surgeon: Shravan Garcia Sheet Pile Driver Operator: [place] Simmons Estimated blood loss (mL): 5 Pathology: other (tubes) Condition: stable Disposition: PACU
--- NOTE | 2024-05-26 12:32 | PC.NURSE ---
1220; pt ambulates to bathroom with minimal assistance,pt voids without difficulty. urine clear,yellow.
== END 2024-05-26 12:35 | disposition home or self-care (01) ==
PROVIDERS: Visit Provider Obstetrics & Gynecology
PROC: (CPT 840; principal; 2024-05-26 08:55)
PROC: (CPT 840; 2024-05-26 08:55)
DX: Z30.2 Encounter for sterilization (principal); N92.0 Excessive and frequent menstruation with regular cycle; N93.9 Abnormal uterine and vaginal bleeding, unspecified; R10.2 Pelvic and perineal pain; Z90.49 Acquired absence of other specified parts of digestive tract
CPT/HCPCS: 00840; 00952; 58563; 58661; 36415; 84702; 85025; 88302; J1100; J1885; J2405; J2704; J3010

== ENCOUNTER 2024-09-20 19:48 | Outpatient (REF) | payer BC, SELFPAY ==
[2024-09-25 23:07] LABS: Age Gdln ACOG Testing Note (.); HPV Aptima Negative (Negative); IGP, Aptima HPV, rfx 16/18,45 Note (.)
== END 2024-09-20 19:49 | disposition home or self-care (01) ==
LOC: LAB 19:48
PROVIDERS: PCP Family Medicine; Visit Provider Physician Assistant
DX: Z01.419 Encounter for gynecological examination (general) (routine) without abnormal findings (principal)
CPT/HCPCS: 87624; 88175